=== PATIENT | female | born 1975 | race Hispanic/Latino ===

== ENCOUNTER → 2017-12-13 | Outpatient (CLI) | payer OTHER ==
[~2017-12-13] MED LIST: AMLO5TAB7 PO; IOHEXOL-350 75 ML VIAL IV ONE; MULT-1052 PO; PITA2TAB2 PO
== END | disposition home or self-care (01) ==
LOC: RAH 08:05
PROVIDERS: ATTEND Family Medicine
DX: N83.201 Unspecified ovarian cyst, right side (principal); N83.202 Unspecified ovarian cyst, left side; K76.0 Fatty (change of) liver, not elsewhere classified; K46.9 Unspecified abdominal hernia without obstruction or gangrene; F32.9 Major depressive disorder, single episode, unspecified; I10 Essential (primary) hypertension; E78.5 Hyperlipidemia, unspecified
CPT/HCPCS: 74178; Q9967

== ENCOUNTER 2018-07-28 11:39 | Emergency (ER) | payer OTHER ==
[~2018-07-28 11:39] MED LIST changes: -AMLO5TAB7 PO; +AMLO5TAB9 PO; -IOHEXOL-350 75 ML VIAL IV ONE
[2018-07-28 12:10] LABS: BASOPHILS % (AUTO) 0.7 % (0.0-5.0); EOSINOPHILS % (AUTO) 1.6 % (0.0-8.0); HEMATOCRIT 37.7 % (36-48); LYMPHOCYTES % (AUTO) 20.8 % (21.0-51.0); MEAN CORPUSCULAR HEMOGLOBIN 26.5 pg (27.0-33.0); MEAN CORPUSCULAR HGB CONC 32.6 g/dL (32.0-36.0); MEAN CORPUSCULAR VOLUME 81.2 fL (79-99); MONOCYTES % (AUTO) 4.8 % (3.0-13.0); NEUTROPHILS % (AUTO) 72.1 % (40.0-77.0); PLATELET COUNT (AUTO) 259 K/uL (130-400); RED BLOOD CELL COUNT(AUTO) 4.64 MIL/uL (4.00-5.50); RED CELL DISTRIBUTION WIDTH 13.6 % (11.0-15.5); WHITE BLOOD COUNT (AUTO) 10.2 K/uL (4.8-10.8)
[2018-07-28 12:16] LABS: CREATININE 0.7 mg/dL (0.5-1.5); POTASSIUM 3.6 mmol/L (3.5-5.1)
[2018-07-28 12:21] LABS: INR 0.9 (0.85-1.15); PARTIAL THROMBOPLASTIN TIME 30.5 SEC (26.3-35.5); PROTHROMBIN TIME 9.5 SEC (9.6-11.6)
[2018-07-28 12:26] LABS: ALBUMIN 3.5 g/dL (3.5-5.0); BILIRUBIN,TOTAL 0.3 mg/dL (0.2-1.0); TOTAL PROTEIN, SERUM 7.9 g/dL (6.0-8.3)
[2018-07-28 12:39] LABS: HCG,QUAL RESULT NEGATIVE (NEGATIVE)
[2018-07-28 12:46] LABS: AMPHET/METH SCREEN,URINE NEGATIVE (NEGATIVE); BARBITURATE SCREEN, URINE NEGATIVE (NEGATIVE); BENZODIAZEPINES SCREEN,URINE NEGATIVE (NEGATIVE); CANNABINOID SCREEN,URINE NEGATIVE (NEGATIVE); COCAINE SCREEN,URINE NEGATIVE (NEGATIVE); OPIATE SCREEN,URINE NEGATIVE (NEGATIVE); PHENCYCLIDINE SCREEN,URINE NEGATIVE (NEGATIVE)
[2018-07-28] MEDS ORDERED: ASPIRIN 325 MG TABLET ONE (14:13)
== END 2018-07-28 16:41 | disposition home or self-care (01) ==
LOC: EDH 11:39
DX: R07.89 Other chest pain (principal); I10 Essential (primary) hypertension; R51 Headache; E78.5 Hyperlipidemia, unspecified; Z90.49 Acquired absence of other specified parts of digestive tract
CPT/HCPCS: 36415; 70450; 71045; 80053; 80305; 81025; 82550; 83874; 84484; 85025; 85610; 85730; 93005

== ENCOUNTER 2019-03-16 02:14 | Emergency (ER) | payer OTHER ==
[2019-03-16 02:27] LABS: BASOPHILS % (AUTO) 0.8 % (0.0-5.0); EOSINOPHILS % (AUTO) 2.5 % (0.0-8.0); LYMPHOCYTES % (AUTO) 27.8 % (21.0-51.0); MEAN CORPUSCULAR VOLUME 78.4 fL (79-99); MONOCYTES % (AUTO) 5.4 % (3.0-13.0); NEUTROPHILS % (AUTO) 63.3 % (40.0-77.0); PLATELET COUNT (AUTO) 271 K/uL (130-400); RED BLOOD CELL COUNT(AUTO) 5.23 MIL/uL (4.00-5.50); RED CELL DISTRIBUTION WIDTH 14.7 % (11.0-15.5); WHITE BLOOD COUNT (AUTO) 8.9 K/uL (4.8-10.8)
[2019-03-16 02:28] LABS: APPEARANCE,URINE Clear (CLEAR); BILIRUBIN,URINE Negative (NEGATIVE); COLOR,URINE Yellow (YELLOW); GLUCOSE, URINE (UA) >=1000 mg/dL (NEGATIVE); KETONES,URINE Negative (NEGATIVE); LEUKOCYTE ESTERASE ,URINE Negative (NEGATIVE); NITRATE,URINE Negative (NEGATIVE); OCCULT BLOOD,URINE Negative (NEGATIVE); PH,URINE 6.5 (5.0-8.0); PROTEIN,URINE Negative (NEGATIVE); UROBILINOGEN,URINE 0.2 mg/dL (0.2-1.0)
[2019-03-16 02:35] LABS: CREATININE 0.8 mg/dL (0.5-1.5); POTASSIUM 3.8 mmol/L (3.5-5.1)
[2019-03-16 02:36] LABS: BACTERIA,URINE None Seen /HPF (None Seen); RBC,URINE None Seen /HPF (0-1); WBC,URINE None Seen /HPF (0-1)
[2019-03-16 02:38] LABS: INR 0.88 (0.85-1.15); PROTHROMBIN TIME 9.3 SEC (9.6-11.6)
[2019-03-16 02:40] LABS: ALBUMIN 3.6 g/dL (3.5-5.0); BILIRUBIN,TOTAL 0.2 mg/dL (0.2-1.0); TOTAL PROTEIN, SERUM 8.1 g/dL (6.0-8.3)
[2019-03-16] MEDS ORDERED: ASPIRIN 325 MG TABLET ONE (02:42)
[2019-03-16] MEDS ORDERED: ONDANSETRON HCL 4 MG/2 ML VIAL ONE (02:42)
[2019-03-16] MEDS ORDERED: DIAZEPAM 5 MG TABLET ONE (02:43)
[2019-03-16 02:50] LABS: HCG,QUAL RESULT NEGATIVE (NEGATIVE)
== END 2019-03-16 05:47 | disposition home or self-care (01) ==
LOC: EDH 02:14
DX: R07.89 Other chest pain (principal); R11.0 Nausea; R00.2 Palpitations; I10 Essential (primary) hypertension; E11.9 Type 2 diabetes mellitus without complications; E78.5 Hyperlipidemia, unspecified; Z90.49 Acquired absence of other specified parts of digestive tract
CPT/HCPCS: 36415; 71045; 80053; 81001; 81025; 82550; 83690; 83880; 84484 ×2; 85025; 85610; 85730; 93005 ×2; 96374; 99285; J2405

== ENCOUNTER → 2020-02-08 | Outpatient (CLI) | payer OTHER ==
[~2020-02-08] MED LIST changes: +AMLO-257 PO; -AMLO5TAB9 PO
== END | disposition home or self-care (01) ==
LOC: SLP 21:14
PROVIDERS: ATTEND Family Medicine
DX: G47.33 Obstructive sleep apnea (adult) (pediatric) (principal); G47.30 Sleep apnea, unspecified
CPT/HCPCS: 95810

== ENCOUNTER → 2020-02-29 | Outpatient (CLI) | payer OTHER | END | disposition home or self-care (01) | LOC: SLP 20:14 | PROVIDERS: ATTEND Family Medicine | DX: G47.33 Obstructive sleep apnea (adult) (pediatric) (principal) | CPT/HCPCS: 95811 ==

== ENCOUNTER 2020-03-24 01:02 | Emergency (ER) | payer OTHER ==
[2020-03-24 01:36] LABS: APPEARANCE,URINE Clear (CLEAR); BILIRUBIN,URINE Negative (NEGATIVE); COLOR,URINE Yellow (YELLOW); GLUCOSE, URINE (UA) >=1000 mg/dL (NEGATIVE); KETONES,URINE Trace mg/dL (NEGATIVE); LEUKOCYTE ESTERASE ,URINE Negative (NEGATIVE); NITRATE,URINE Negative (NEGATIVE); OCCULT BLOOD,URINE Negative (NEGATIVE); PROTEIN,URINE Negative (NEGATIVE)
[2020-03-24 01:49] LABS: CREATININE 0.8 mg/dL (0.5-1.5); POTASSIUM 3.3 mmol/L (3.5-5.1)
[2020-03-24 01:50] LABS: BACTERIA,URINE None Seen /HPF (None Seen); CALCIUM OXALATE CRYSTALS,UR Moderate /LPF (None Seen); RBC,URINE None Seen /HPF (0-1); SQUAMOUS EPITHELIAL CELL,UR Few /HPF (0-2); WBC,URINE None Seen /HPF (0-1); YEAST,URINE BUDDING None Seen /HPF (None Seen)
[2020-03-24 01:54] LABS: ALBUMIN 3.4 g/dL (3.5-5.0); BILIRUBIN,TOTAL 0.1 mg/dL (0.2-1.0); TOTAL PROTEIN, SERUM 7.8 g/dL (6.0-8.3)
[2020-03-24] MEDS ORDERED: KCL 20 MEQ ERTAB PO ONE (03:52)
[2020-03-24 04:03] LABS: BASOPHILS % (AUTO) 0.8 % (0.0-5.0); EOSINOPHILS % (AUTO) 2.9 % (0.0-8.0); HEMATOCRIT 41.1 % (36-48); LYMPHOCYTES % (AUTO) 26.4 % (21.0-51.0); MEAN CORPUSCULAR HEMOGLOBIN 24.5 pg (27.0-33.0); MEAN CORPUSCULAR HGB CONC 32.1 g/dL (32.0-36.0); MEAN CORPUSCULAR VOLUME 76.4 fL (79-99); MONOCYTES % (AUTO) 4.7 % (3.0-13.0); NEUTROPHILS % (AUTO) 64.8 % (40.0-77.0); PLATELET COUNT (AUTO) 257 K/uL (130-400); RED BLOOD CELL COUNT(AUTO) 5.38 MIL/uL (4.00-5.50); RED CELL DISTRIBUTION WIDTH 14.6 % (11.0-15.5); WHITE BLOOD COUNT (AUTO) 7.9 K/uL (4.8-10.8)
[2020-03-24 04:09] LABS: BASOPHILS % (AUTO) 0.7 % (0.0-5.0); EOSINOPHILS % (AUTO) 2.2 % (0.0-8.0); LYMPHOCYTES % (AUTO) 22.5 % (21.0-51.0); MEAN CORPUSCULAR HEMOGLOBIN 24.6 pg (27.0-33.0); MEAN CORPUSCULAR HGB CONC 32.1 g/dL (32.0-36.0); MEAN CORPUSCULAR VOLUME 76.8 fL (79-99); MONOCYTES % (AUTO) 3.5 % (3.0-13.0); NEUTROPHILS % (AUTO) 70.7 % (40.0-77.0); PLATELET COUNT (AUTO) 246 K/uL (130-400); RED BLOOD CELL COUNT(AUTO) 5.08 MIL/uL (4.00-5.50); RED CELL DISTRIBUTION WIDTH 14.6 % (11.0-15.5)
== END 2020-03-24 04:49 | disposition home or self-care (01) ==
LOC: EDH 01:02
DX: E87.6 Hypokalemia (principal); F41.1 Generalized anxiety disorder; E11.9 Type 2 diabetes mellitus without complications; E78.5 Hyperlipidemia, unspecified; I10 Essential (primary) hypertension; Z90.49 Acquired absence of other specified parts of digestive tract
CPT/HCPCS: 36415; 71045; 80053; 81001; 84484; 85025; 93005

== ENCOUNTER → 2021-11-13 | Outpatient (CLI) | payer OTHER | END | disposition home or self-care (01) | LOC: SLP 11-09 20:30 | PROVIDERS: ATTEND Family Medicine | DX: G47.33 Obstructive sleep apnea (adult) (pediatric) (principal) | CPT/HCPCS: 95811 ==

== ENCOUNTER 2022-02-19 16:00 | Observation (INO) | payer OTHER ==
[~2022-02-19] VITALS: Ht 154.9 cm; Wt 70.7 kg
[2022-02-19] MEDS ORDERED: ONDANSETRON 4MG INJ IVP ONE (17:00)
[2022-02-19] MEDS ORDERED: FAMOTIDINE 20MG TAB PO ONE (17:00)
[2022-02-19 17:12] LABS: BASOPHILS % (AUTO) 0.5 % (0.0-5.0); EOSINOPHILS % (AUTO) 0.4 % (0.0-8.0); HEMATOCRIT 44.6 % (36-48); LYMPHOCYTES % (AUTO) 6.3 % (21.0-51.0); MEAN CORPUSCULAR HEMOGLOBIN 25.7 pg (27.0-33.0); MEAN CORPUSCULAR HGB CONC 32.7 g/dL (32.0-36.0); MEAN CORPUSCULAR VOLUME 78.7 fL (79-99); MONOCYTES % (AUTO) 4.8 % (3.0-13.0); NEUTROPHILS % (AUTO) 87.6 % (40.0-77.0); PLATELET COUNT (AUTO) 236 K/uL (130-400); RED BLOOD CELL COUNT(AUTO) 5.67 MIL/uL (4.00-5.50); RED CELL DISTRIBUTION WIDTH 15.3 % (11.0-15.5); WHITE BLOOD COUNT (AUTO) 17.2 K/uL (4.8-10.8)
[2022-02-19 17:35] LABS: CREATININE 0.7 mg/dL (0.5-1.5); POTASSIUM 3.6 mmol/L (3.5-5.1)
[2022-02-19 17:39] LABS: ALBUMIN 3.7 g/dL (3.5-5.0); TOTAL PROTEIN, SERUM 7.6 g/dL (6.0-8.3)
[2022-02-19 19:25] LABS: APPEARANCE,URINE CLEAR (CLEAR); BILIRUBIN,URINE NEGATIVE (NEGATIVE); COLOR,URINE YELLOW (YELLOW); GLUCOSE, URINE (UA) >=1000 mg/dL (NEGATIVE); KETONES,URINE 15 mg/dL (NEGATIVE); LEUKOCYTE ESTERASE ,URINE NEGATIVE Leu/uL (NEGATIVE); NITRATE,URINE NEGATIVE (NEGATIVE); OCCULT BLOOD,URINE NEGATIVE (NEGATIVE); PH,URINE 5.5 (5.0-8.0); PROTEIN,URINE NEGATIVE (NEGATIVE); UROBILINOGEN,URINE 0.2 mg/dL (0.2-1.0)
[2022-02-19 19:41] LABS: RBC,URINE None Seen /HPF (0-1)
[2022-02-19 19:42] LABS: BACTERIA,URINE Rare /HPF (None Seen); SQUAMOUS EPITHELIAL CELL,UR 0-2 /HPF (0-2); WBC,URINE 0-1 /HPF (0-1)
[2022-02-19] MEDS ORDERED: HYDROCODONE/ACETAMINOPHEN 5/325 MG TAB PO PRN ×2 (20:00)
[2022-02-19 20:30] LABS: HEMOGLOBIN A1C 5.8 % (4.0-6.0)
[2022-02-19] MEDS: INSULIN HUMULIN R 100 UNIT/ML 3ML SQ SCH (21:00)
[2022-02-19] MEDS: PANTOPRAZOLE 40 MG/VIAL IVP SCH (21:21)
[2022-02-19] MEDS: CEFTRIAXONE 1G VIAL IVP SCH (21:21)
[2022-02-20] VITALS (7 sets, daily range): BP systolic 113–128; BP diastolic 68–78
[2022-02-20] MEDS ORDERED: AMLO-258 PO (02:45)
[2022-02-20] MEDS ORDERED: METF750T46 PO (02:45)
[2022-02-20] MEDS ORDERED: ROSU5TAB12 PO (02:45)
[2022-02-20] MEDS ORDERED: LOSA100T58 PO (02:45)
[2022-02-20] MEDS: INSULIN HUMULIN R 100 UNIT/ML 3ML SQ SCH ×4 (07:30→21:00)
[2022-02-20 07:34] LABS: ALBUMIN 3.3 g/dL (3.5-5.0); CREATININE 0.6 mg/dL (0.5-1.5); MAGNESIUM 1.9 mg/dL (1.80-2.40); POTASSIUM 3.5 mmol/L (3.5-5.1); TOTAL PROTEIN, SERUM 6.9 g/dL (6.0-8.3)
[2022-02-20 09:23] LABS: ERYTHROCYTE SEDIMENTATION RATE 10 MM/HR (0-20)
[2022-02-20 09:25] LABS: BASOPHILS % (AUTO) 0.7 % (0.0-5.0); EOSINOPHILS % (AUTO) 3.2 % (0.0-8.0); HEMATOCRIT 37.6 % (36-48); LYMPHOCYTES % (AUTO) 37.1 % (21.0-51.0); MEAN CORPUSCULAR HEMOGLOBIN 25.9 pg (27.0-33.0); MEAN CORPUSCULAR HGB CONC 32.7 g/dL (32.0-36.0); MEAN CORPUSCULAR VOLUME 79.2 fL (79-99); MONOCYTES % (AUTO) 5.7 % (3.0-13.0); NEUTROPHILS % (AUTO) 53.1 % (40.0-77.0); PLATELET COUNT (AUTO) 242 K/uL (130-400); RED BLOOD CELL COUNT(AUTO) 4.75 MIL/uL (4.00-5.50); RED CELL DISTRIBUTION WIDTH 15.3 % (11.0-15.5)
[2022-02-20] MEDS ORDERED: HYDRALAZINE 20MG/ML VIAL IV PRN (11:00)
[2022-02-20] MEDS ORDERED: 0.9%NACL 1000ML 500 ML IV ONE (11:00)
[2022-02-20 11:04] LABS: HEMOGLOBIN A1C 5.7 % (4.0-6.0)
[2022-02-20] MEDS ORDERED: IOHEXOL 350 MG/ML 100ML INFUS..BTL IV ONE (11:34)
[2022-02-20] MEDS: PANTOPRAZOLE 40 MG/VIAL IVP SCH ×2 (12:39→21:22)
[2022-02-20] MEDS: ASPIRIN 81 MG EC TAB PO SCH (12:39)
[2022-02-20] MEDS: CEFTRIAXONE 1G VIAL IVP SCH ×2 (12:39→21:22)
[2022-02-20 13:33] LABS: APPEARANCE,URINE CLEAR (CLEAR); BILIRUBIN,URINE NEGATIVE (NEGATIVE); COLOR,URINE LIGHT-YELLOW (YELLOW); GLUCOSE, URINE (UA) >=1000 mg/dL (NEGATIVE); KETONES,URINE NEGATIVE (NEGATIVE); LEUKOCYTE ESTERASE ,URINE NEGATIVE Leu/uL (NEGATIVE); NITRATE,URINE NEGATIVE (NEGATIVE); OCCULT BLOOD,URINE NEGATIVE (NEGATIVE); PH,URINE 6.5 (5.0-8.0); PROTEIN,URINE NEGATIVE (NEGATIVE); UROBILINOGEN,URINE 0.2 mg/dL (0.2-1.0)
[2022-02-20 14:11] LABS: BACTERIA,URINE RARE /HPF (None Seen); SQUAMOUS EPITHELIAL CELL,UR FEW /HPF (0-2)
[2022-02-20] MEDS ORDERED: ATORVASTATIN 40 MG TABLET PO SCH (21:00)
[2022-02-21 04:10] VITALS: BP 116/70
[2022-02-21 04:13] LABS: BASOPHILS % (AUTO) 0.6 % (0.0-5.0); EOSINOPHILS % (AUTO) 3.1 % (0.0-8.0); HEMATOCRIT 39.5 % (36-48); LYMPHOCYTES % (AUTO) 28.7 % (21.0-51.0); MEAN CORPUSCULAR HEMOGLOBIN 25.5 pg (27.0-33.0); MEAN CORPUSCULAR HGB CONC 31.6 g/dL (32.0-36.0); MEAN CORPUSCULAR VOLUME 80.6 fL (79-99); MONOCYTES % (AUTO) 5.6 % (3.0-13.0); NEUTROPHILS % (AUTO) 61.9 % (40.0-77.0); PLATELET COUNT (AUTO) 204 K/uL (130-400); RED CELL DISTRIBUTION WIDTH 15.6 % (11.0-15.5); WHITE BLOOD COUNT (AUTO) 7.1 K/uL (4.8-10.8)
[2022-02-21 04:30] LABS: CREATININE 0.7 mg/dL (0.5-1.5); MAGNESIUM 1.9 mg/dL (1.80-2.40); POTASSIUM 3.7 mmol/L (3.5-5.1)
[2022-02-21] MEDS: INSULIN HUMULIN R 100 UNIT/ML 3ML SQ SCH (07:30)
[2022-02-21 08:00] VITALS: BP 117/76
[2022-02-21] MEDS: ASPIRIN 81 MG EC TAB PO SCH (09:06)
[2022-02-21] MEDS: PANTOPRAZOLE 40 MG/VIAL IVP SCH (09:06)
[2022-02-21] MEDS: CEFTRIAXONE 1G VIAL IVP SCH (09:06)
[2022-02-21] MEDS ORDERED: LOSARTAN 25 MG TABLET PO SCH (10:00)
[2022-02-21] MEDS ORDERED: LOSA25TA41 PO (11:32)
[2022-02-21] MEDS ORDERED: AEC81 PO (11:33)
[2022-02-21] MEDS ORDERED: CEPH500B PO (11:38)
== END 2022-02-21 14:45 | disposition home or self-care (01) ==
LOC: EDH 16:00 → INTOOBSV 19:39 → EDHIP 19:39 → 3DH 02-20 00:45
PROVIDERS: ADMIT Hospitalist; ATTEND Hospitalist
DX: R10.9 Unspecified abdominal pain (principal); R11.2 Nausea with vomiting, unspecified; R20.0 Anesthesia of skin; R42 Dizziness and giddiness; R51.9 Headache, unspecified; I10 Essential (primary) hypertension; E11.9 Type 2 diabetes mellitus without complications; D72.829 Elevated white blood cell count, unspecified; E78.5 Hyperlipidemia, unspecified; G51.0 Bell's palsy; I63.9 Cerebral infarction, unspecified; R29.700 NIHSS score 0; Z79.84 Long term (current) use of oral hypoglycemic drugs; Z79.899 Other long term (current) drug therapy; Z98.890 Other specified postprocedural states; Z79.82 Long term (current) use of aspirin
CPT/HCPCS: 96374; 96375; 99285; 83036 ×2; 82550; 84484; 80053 ×2; 83690; 85025 ×3; 87040 ×2; 82948 ×7; 81001 ×2; 36415 ×3; 71045; 70450; 74176; 93005; 96376 ×2; 84443; 83735 ×2; 85651; 87088; 81025; 70496; 70498; 70551; 92522; 92610; 80061; 80048; 93306; J0696 ×4; J2405; C9113 ×4; J7030; Q9967; G0378 ×2

== ENCOUNTER 2022-05-28 04:15 | Inpatient (IN) | payer OTHER ==
[~2022-05-28] VITALS: Ht 152.4 cm; Wt 68.3 kg
[~2022-05-28 04:15] MED LIST changes: +AEC81 PO; -AMLO-257 PO; +CEPH500B PO; +LOSA25TA41 PO; -PITA2TAB2 PO; +ROSU5TAB12 PO
[2022-05-28] MEDS ORDERED: ONDANSETRON 4MG INJ ONE (04:27)
[2022-05-28] MEDS ORDERED: 0.9%NACL 1000ML 1,000 ML IV ONE (04:30)
[2022-05-28] MEDS ORDERED: ONDANSETRON 4MG INJ IVP ONE (04:30)
[2022-05-28] MEDS ORDERED: MORPHINE 4 MG SYG ONE (04:34)
[2022-05-28 04:51] LABS: BASOPHILS % (AUTO) 0.4 % (0.0-5.0); EOSINOPHILS % (AUTO) 0.1 % (0.0-8.0); HEMATOCRIT 43.3 % (36-48); LYMPHOCYTES % (AUTO) 10.4 % (21.0-51.0); MEAN CORPUSCULAR HEMOGLOBIN 26.2 pg (27.0-33.0); MEAN CORPUSCULAR HGB CONC 33.3 g/dL (32.0-36.0); MEAN CORPUSCULAR VOLUME 78.7 fL (79-99); MONOCYTES % (AUTO) 4.7 % (3.0-13.0); NEUTROPHILS % (AUTO) 83.7 % (40.0-77.0); PLATELET COUNT (AUTO) 228 K/uL (130-400); RED CELL DISTRIBUTION WIDTH 15.2 % (11.0-15.5); WHITE BLOOD COUNT (AUTO) 25.1 K/uL (4.8-10.8)
[2022-05-28 04:59] LABS: CREATININE 0.8 mg/dL (0.5-1.5); POTASSIUM 3.4 mmol/L (3.5-5.1)
[2022-05-28] MEDS ORDERED: MORPHINE 4 MG SYG IVP ONE (05:00)
[2022-05-28 05:02] LABS: APPEARANCE,URINE CLOUDY (CLEAR); BILIRUBIN,URINE NEGATIVE (NEGATIVE); COLOR,URINE YELLOW (YELLOW); GLUCOSE, URINE (UA) >=1000 mg/dL (NEGATIVE); KETONES,URINE 40 mg/dL (NEGATIVE); LEUKOCYTE ESTERASE ,URINE 250 Leu/uL (NEGATIVE); NITRATE,URINE NEGATIVE (NEGATIVE); PH,URINE 5.5 (5.0-8.0); PROTEIN,URINE 10 mg/dL (NEGATIVE); UROBILINOGEN,URINE 0.2 mg/dL (0.2-1.0)
[2022-05-28 05:04] LABS: BACTERIA,URINE RARE /HPF (None Seen); MUCUS,URINE RARE LPF (None Seen); SQUAMOUS EPITHELIAL CELL,UR FEW /HPF (0-2); WBC,URINE 51-100 /HPF (0-1)
[2022-05-28 05:05] LABS: ALBUMIN 3.4 g/dL (3.5-5.0); TOTAL PROTEIN, SERUM 7.8 g/dL (6.0-8.3)
[2022-05-28] MEDS ORDERED: CEFTRIAXONE 1G VIAL ONE (05:40)
[2022-05-28] MEDS ORDERED: CEFTRIAXONE 1G VIAL IVP ONE (06:00)
[2022-05-28] MEDS ORDERED: ZOSYN 3.375GM +NS 50ML IVPB STA (11:10)
[2022-05-28] MEDS ORDERED: ZOSYN 3.375GM+NS 50ML 50 ML IVPB ONE (11:30)
[2022-05-28] MEDS ORDERED: ZOSYN 3.375GM+NS 50ML 50 ML IVPB SCH ×2 (13:00→21:00)
[2022-05-28] MEDS ORDERED: MORPHINE 2 MG SYG ONE (13:12)
[2022-05-28] MEDS ORDERED: LACTATED RINGERS 1000ML 1,000 ML IV ONE (13:12)
[2022-05-28] MEDS: MORPHINE 2 MG SYG IVP PRN ×2 (13:14→18:17)
[2022-05-28] MEDS: LACTATED RINGERS 1000ML 1,000 ML IV SCH ×2 (13:14→22:30)
[2022-05-28 13:20] LABS: HEMOGLOBIN A1C 6.2 % (4.0-6.0); PROTHROMBIN TIME 10.9 SEC (9.6-11.6)
[2022-05-28 13:21] LABS: PARTIAL THROMBOPLASTIN TIME 35.3 SEC (26.3-35.5)
[2022-05-28 13:47] LABS: AMPHET/METH SCREEN,URINE NEGATIVE (NEGATIVE); BARBITURATE SCREEN, URINE NEGATIVE (NEGATIVE); BENZODIAZEPINES SCREEN,URINE NEGATIVE (NEGATIVE); CANNABINOID SCREEN,URINE NEGATIVE (NEGATIVE); COCAINE SCREEN,URINE NEGATIVE (NEGATIVE); OPIATE SCREEN,URINE NEGATIVE (NEGATIVE); PHENCYCLIDINE SCREEN,URINE NEGATIVE (NEGATIVE)
[2022-05-28 14:30] VITALS: BP 126/72
[2022-05-28] MEDS ORDERED: ONDANSETRON 4MG INJ IVP PRN (15:00)
[2022-05-28] MEDS ORDERED: SIMETHICONE 80 MG TAB.CHEW PO SCH (18:30)
[2022-05-28] MEDS: DOXYCYCLINE HYCLATE 100 MG TABLET PO SCH (19:42)
[2022-05-28] MEDS: ACETAMINOPHEN 325 MG TAB PO PRN (19:43)
[2022-05-28 20:00] VITALS: BP 131/81
[2022-05-28] MEDS ORDERED: 0.9%NACL 50ML IV SCH (20:00)
[2022-05-28] MEDS ORDERED: ZOSYN 3.375GM +NS 50ML IVPB SCH (20:00)
[2022-05-28] MEDS ORDERED: VANCOMYCIN PROTOCOL PER PHARMACY IV SCH (20:00)
[2022-05-28] MEDS ORDERED: VANCOMYCIN 1G/250ML KIT 250 ML IV SCH (20:00)
[2022-05-28] MEDS: INSULIN HUMULIN R 100 UNIT/ML 3ML SQ SCH (21:00)
[2022-05-28] MEDS: MEROPENEM 1 GM VIAL IVP SCH (21:10)
[2022-05-28] MEDS: KETOROLAC 15MG/ML VIAL (15MG/ML) IV PRN (21:10)
[2022-05-29] VITALS: BP 109/71
[2022-05-29] MEDS: ACETAMINOPHEN 325 MG TAB PO PRN (02:07)
[2022-05-29 04:00] VITALS: BP 124/73
[2022-05-29] MEDS: MEROPENEM 1 GM VIAL IVP SCH ×3 (04:25→20:33)
[2022-05-29 05:07] LABS: BASOPHILS % (AUTO) 0.2 % (0.0-5.0); EOSINOPHILS % (AUTO) 0.1 % (0.0-8.0); HEMATOCRIT 38.1 % (36-48); LYMPHOCYTES % (AUTO) 6.3 % (21.0-51.0); MEAN CORPUSCULAR HEMOGLOBIN 25.7 pg (27.0-33.0); MEAN CORPUSCULAR HGB CONC 31.8 g/dL (32.0-36.0); MEAN CORPUSCULAR VOLUME 81.1 fL (79-99); MONOCYTES % (AUTO) 3.7 % (3.0-13.0); PLATELET COUNT (AUTO) 181 K/uL (130-400); RED CELL DISTRIBUTION WIDTH 15.7 % (11.0-15.5); WHITE BLOOD COUNT (AUTO) 16.3 K/uL (4.8-10.8)
[2022-05-29 05:33] LABS: ALBUMIN 2.6 g/dL (3.5-5.0); CREATININE 0.8 mg/dL (0.5-1.5); POTASSIUM 3.4 mmol/L (3.5-5.1); TOTAL PROTEIN, SERUM 6.7 g/dL (6.0-8.3)
[2022-05-29] MEDS: INSULIN HUMULIN R 100 UNIT/ML 3ML SQ SCH ×4 (05:58→20:44)
[2022-05-29 06:29] LABS: CRP QUANTITATIVE 446.4 mg/L (0.00-9.0)
[2022-05-29 08:11] VITALS: BP 111/72
[2022-05-29] MEDS: DOXYCYCLINE HYCLATE 100 MG TABLET PO SCH ×2 (08:49→20:33)
[2022-05-29] MEDS: KETOROLAC 15MG/ML VIAL (15MG/ML) IV PRN ×3 (08:50→21:28)
[2022-05-29] MEDS: VANCOMYCIN 750MG VIAL IVPB SCH ×2 (08:50→21:28)
[2022-05-29] MEDS ORDERED: 0.9% NACL 250ML 250 ML IV SCH (09:00)
[2022-05-29] MEDS: PANTOPRAZOLE 40 MG/VIAL IVP SCH (11:14)
[2022-05-29 12:11] VITALS: BP 137/77
[2022-05-29 16:46] VITALS: BP 126/74
[2022-05-29] MEDS: LACTATED RINGERS 1000ML 1,000 ML IV SCH (17:55)
[2022-05-29] MEDS: ACETAMINOPHEN 500 MG TABLET PO PRN (18:32)
[2022-05-29 20:00] VITALS: BP 126/76
[2022-05-29] MEDS ORDERED: IPRATROPIUM/ALBUTEROL SULFATE 3 ML SOLUTION IH PRN (21:00)
[2022-05-29] MEDS ORDERED: LACTATED RINGERS 1000ML 1,000 ML IV SCH (21:00)
[2022-05-29] MEDS: BUDESONIDE 0.5 MG/2 ML INH IH SCH (21:29)
[2022-05-30] VITALS (31 sets, daily range): BP systolic 114–156; BP diastolic 61–93
[2022-05-30 05:15] LABS: BASOPHILS % (AUTO) 0.3 % (0.0-5.0); EOSINOPHILS % (AUTO) 0.2 % (0.0-8.0); HEMATOCRIT 35.4 % (36-48); MEAN CORPUSCULAR HGB CONC 32.5 g/dL (32.0-36.0); MEAN CORPUSCULAR VOLUME 79.9 fL (79-99); MONOCYTES % (AUTO) 3.7 % (3.0-13.0); NEUTROPHILS % (AUTO) 89.5 % (40.0-77.0); PLATELET COUNT (AUTO) 186 K/uL (130-400); RED BLOOD CELL COUNT(AUTO) 4.43 MIL/uL (4.00-5.50); RED CELL DISTRIBUTION WIDTH 15.2 % (11.0-15.5); WHITE BLOOD COUNT (AUTO) 15.8 K/uL (4.8-10.8)
[2022-05-30] MEDS: MEROPENEM 1 GM VIAL IVP SCH ×3 (05:15→20:46)
[2022-05-30 05:27] LABS: ALBUMIN 2.2 g/dL (3.5-5.0); CREATININE 0.7 mg/dL (0.5-1.5); POTASSIUM 3.2 mmol/L (3.5-5.1); TOTAL PROTEIN, SERUM 6.5 g/dL (6.0-8.3)
[2022-05-30] MEDS: KETOROLAC 15MG/ML VIAL (15MG/ML) IV PRN ×3 (05:30→21:06)
[2022-05-30 05:44] LABS: CRP QUANTITATIVE 479.2 mg/L (0.00-9.0)
[2022-05-30 05:50] LABS: B-TYPE NATRIURETIC PEPTIDE 90 pg/mL (0-100)
[2022-05-30] MEDS ORDERED: BUDESONIDE 0.5 MG/2 ML INH IH ONE (06:18)
[2022-05-30] MEDS: INSULIN HUMULIN R 100 UNIT/ML 3ML SQ SCH ×4 (06:22→20:46)
[2022-05-30] MEDS: BUDESONIDE 0.5 MG/2 ML INH IH SCH ×2 (06:36→18:56)
[2022-05-30] MEDS ORDERED: PROPOFOL 10 MG/ML 20ML VIAL IV ONE (06:47)
[2022-05-30] MEDS ORDERED: FENTANYL CITRATE PF 50 MCG/1 ML 2ML VIAL ONE ×2 (06:47→09:26)
[2022-05-30] MEDS ORDERED: MIDAZOLAM HCL 1 MG/ML 2ML VIAL ONE (06:47)
[2022-05-30] MEDS: DOXYCYCLINE HYCLATE 100 MG TABLET PO SCH ×2 (07:50→20:46)
[2022-05-30] MEDS: PANTOPRAZOLE 40 MG/VIAL IVP SCH (08:11)
[2022-05-30] MEDS ORDERED: ROCURONIUM 10MG/1ML SYR 10 MG/ML ML ONE (08:38)
[2022-05-30] MEDS ORDERED: ONDANSETRON 4MG INJ ONE (08:40)
[2022-05-30] MEDS ORDERED: NEOSTIGMINE 5MG/5ML SYR IV ONE (09:26)
[2022-05-30] MEDS ORDERED: GLYCOPYRROLATE 1 MG/5 ML SYRINGE ONE (09:26)
[2022-05-30] MEDS: VANCOMYCIN 750MG VIAL IVPB SCH ×2 (11:13→22:03)
[2022-05-30] MEDS ORDERED: VANCOMYCIN 500MG+NS 100ML 100 ML IV SCH (15:00)
[2022-05-30] MEDS: ACETAMINOPHEN 500 MG TABLET PO PRN (15:03)
[2022-05-30] MEDS: DEXTROSE 5%-LACTATED RINGERS 1,000 ML IV SCH ×2 (15:03→19:30)
[2022-05-30] MEDS ORDERED: LABETALOL 20MG VIAL IV PRN (16:00)
[2022-05-30] MEDS: (Rosuvastatin Calcium 5 MG) PO SCH (20:46)
[2022-05-31] MEDS: DEXTROSE 5%-LACTATED RINGERS 1,000 ML IV SCH ×3 (03:30→19:30)
[2022-05-31 04:38] VITALS: BP 140/75
[2022-05-31 05:15] LABS: BASOPHILS % (AUTO) 0.2 % (0.0-5.0); EOSINOPHILS % (AUTO) 0.3 % (0.0-8.0); HEMATOCRIT 32.3 % (36-48); LYMPHOCYTES % (AUTO) 5.6 % (21.0-51.0); MEAN CORPUSCULAR HEMOGLOBIN 25.8 pg (27.0-33.0); MEAN CORPUSCULAR HGB CONC 33.1 g/dL (32.0-36.0); MEAN CORPUSCULAR VOLUME 77.8 fL (79-99); MONOCYTES % (AUTO) 3.8 % (3.0-13.0); NEUTROPHILS % (AUTO) 89.4 % (40.0-77.0); PLATELET COUNT (AUTO) 201 K/uL (130-400); RED BLOOD CELL COUNT(AUTO) 4.15 MIL/uL (4.00-5.50); RED CELL DISTRIBUTION WIDTH 14.9 % (11.0-15.5); WHITE BLOOD COUNT (AUTO) 14.6 K/uL (4.8-10.8)
[2022-05-31 05:35] LABS: CREATININE 0.6 mg/dL (0.5-1.5); MAGNESIUM 1.5 mg/dL (1.80-2.40); TOTAL PROTEIN, SERUM 6.1 g/dL (6.0-8.3)
[2022-05-31 05:47] LABS: POTASSIUM 2.6 mmol/L (3.5-5.1)
[2022-05-31] MEDS: MEROPENEM 1 GM VIAL IVP SCH ×3 (05:59→20:13)
[2022-05-31] MEDS: INSULIN HUMULIN R 100 UNIT/ML 3ML SQ SCH ×4 (05:59→20:18)
[2022-05-31] MEDS: ACETAMINOPHEN 325 MG TAB PO PRN ×2 (06:03→20:12)
[2022-05-31] MEDS: BUDESONIDE 0.5 MG/2 ML INH IH SCH ×2 (06:40→18:38)
[2022-05-31 07:57] VITALS: BP 140/77
[2022-05-31] MEDS ORDERED: POTASSIUM CHLORIDE 10% ELIXIR 20 MEQ/15 ML UDCUP PO PRN (08:30)
[2022-05-31] MEDS ORDERED: MAGNESIUM 4GM PREMIX 100ML 100 ML IV PRN (08:30)
[2022-05-31] MEDS: LOSARTAN 25 MG TABLET PO SCH (09:07)
[2022-05-31] MEDS: DOXYCYCLINE HYCLATE 100 MG TABLET PO SCH ×2 (09:07→20:12)
[2022-05-31] MEDS: ASPIRIN 81 MG EC TAB PO SCH (09:07)
[2022-05-31] MEDS: PANTOPRAZOLE 40 MG/VIAL IVP SCH (09:07)
[2022-05-31] MEDS: VANCOMYCIN 750MG VIAL IVPB SCH ×2 (09:08→21:06)
[2022-05-31] MEDS: LIDOCAINE HCL-MPF 1% 2ML VIAL IV PRN ×2 (10:57→14:19)
[2022-05-31] MEDS: KCL 20 MEQ ERTAB PO PRN ×6 (10:57→23:50)
[2022-05-31] MEDS: POTASSIUM CHLORIDE 20MEQ/100ML 100 ML IV PRN ×2 (10:57→14:19)
[2022-05-31 12:00] VITALS: BP 141/83
[2022-05-31] MEDS: ACETAMINOPHEN 500 MG TABLET PO PRN (12:00)
[2022-05-31] MEDS ORDERED: LOPERAMIDE 1 MG/7.5 ML UDCUP PO SCH (12:00)
[2022-05-31 12:53] LABS: THYROID STIMULATING HORMONE 1.5 uIU/mL (0.36-3.74)
[2022-05-31] MEDS: LOPERAMIDE 1 MG/7.5 ML UDCUP PO SCH ×2 (14:18→20:12)
[2022-05-31] MEDS ORDERED: AMLO-257 PO (15:41)
[2022-05-31 16:00] VITALS: BP 141/85
[2022-05-31 19:53] VITALS: BP 146/86
[2022-05-31] MEDS: (Rosuvastatin Calcium 5 MG) PO SCH (21:00)
[2022-05-31 23:31] VITALS: BP 127/82
[2022-06-01] MEDS: ACETAMINOPHEN 500 MG TABLET PO PRN ×2 (00:21→16:55)
[2022-06-01] MEDS: KCL 20 MEQ ERTAB PO PRN (03:27)
[2022-06-01] MEDS: DEXTROSE 5%-LACTATED RINGERS 1,000 ML IV SCH ×3 (03:30→20:23)
[2022-06-01 04:37] VITALS: BP 131/87
[2022-06-01 04:52] LABS: BASOPHILS % (AUTO) 0.5 % (0.0-5.0); HEMATOCRIT 32.7 % (36-48); LYMPHOCYTES % (AUTO) 8.4 % (21.0-51.0); MEAN CORPUSCULAR HEMOGLOBIN 25.8 pg (27.0-33.0); MEAN CORPUSCULAR HGB CONC 32.7 g/dL (32.0-36.0); MEAN CORPUSCULAR VOLUME 78.8 fL (79-99); MONOCYTES % (AUTO) 5.6 % (3.0-13.0); NEUTROPHILS % (AUTO) 83.7 % (40.0-77.0); PLATELET COUNT (AUTO) 206 K/uL (130-400); RED BLOOD CELL COUNT(AUTO) 4.15 MIL/uL (4.00-5.50); RED CELL DISTRIBUTION WIDTH 15.1 % (11.0-15.5); WHITE BLOOD COUNT (AUTO) 11.7 K/uL (4.8-10.8)
[2022-06-01 05:10] LABS: ALBUMIN 1.9 g/dL (3.5-5.0); CREATININE 0.6 mg/dL (0.5-1.5); MAGNESIUM 1.9 mg/dL (1.80-2.40); POTASSIUM 3.6 mmol/L (3.5-5.1); TOTAL PROTEIN, SERUM 5.9 g/dL (6.0-8.3)
[2022-06-01] MEDS: MEROPENEM 1 GM VIAL IVP SCH ×3 (05:26→22:00)
[2022-06-01] MEDS: ACETAMINOPHEN 325 MG TAB PO PRN (05:34)
[2022-06-01] MEDS: BUDESONIDE 0.5 MG/2 ML INH IH SCH ×2 (06:42→19:37)
[2022-06-01] MEDS: INSULIN HUMULIN R 100 UNIT/ML 3ML SQ SCH ×4 (07:16→20:21)
[2022-06-01 08:00] VITALS: BP 133/88
[2022-06-01] MEDS: LOPERAMIDE 1 MG/7.5 ML UDCUP PO SCH (09:00)
[2022-06-01] MEDS: VANCOMYCIN 750MG VIAL IVPB SCH ×2 (09:00→22:00)
[2022-06-01] MEDS: DOXYCYCLINE HYCLATE 100 MG TABLET PO SCH ×2 (09:05→22:01)
[2022-06-01] MEDS: ASPIRIN 81 MG EC TAB PO SCH (09:05)
[2022-06-01] MEDS: LOSARTAN 25 MG TABLET PO SCH (09:06)
[2022-06-01] MEDS: AMLODIPINE 5 MG TAB PO SCH (09:06)
[2022-06-01] MEDS ORDERED: VANCOMYCIN 1.75 GM/250 ML BAG 250 ML IV SCH (11:00)
[2022-06-01] MEDS: PANTOPRAZOLE 40 MG/VIAL IVP SCH (11:42)
[2022-06-01 11:56] VITALS: BP 138/80
[2022-06-01] MEDS: DICYCLOMINE HCL 20 MG TAB PO SCH (14:54)
[2022-06-01] MEDS: SIMETHICONE 80 MG TAB.CHEW PO SCH (14:54)
[2022-06-01 16:00] VITALS: BP 135/85
[2022-06-01] MEDS ORDERED: IOHEXOL 350 MG/ML 100ML INFUS..BTL IV ONE (17:01)
[2022-06-01 20:20] VITALS: BP 118/77
[2022-06-01] MEDS: (Rosuvastatin Calcium 5 MG) PO SCH (21:00)
[2022-06-02 00:25] VITALS: BP 139/84
[2022-06-02] MEDS: KETOROLAC 15MG/ML VIAL (15MG/ML) IV PRN ×2 (00:28→10:52)
[2022-06-02] MEDS: DEXTROSE 5%-LACTATED RINGERS 1,000 ML IV SCH ×3 (03:30→20:12)
[2022-06-02 03:42] VITALS: BP 145/82
[2022-06-02 05:13] LABS: BASOPHILS % (AUTO) 0.4 % (0.0-5.0); EOSINOPHILS % (AUTO) 1.3 % (0.0-8.0); HEMATOCRIT 33.9 % (36-48); LYMPHOCYTES % (AUTO) 11.4 % (21.0-51.0); MEAN CORPUSCULAR HEMOGLOBIN 25.7 pg (27.0-33.0); MEAN CORPUSCULAR HGB CONC 32.4 g/dL (32.0-36.0); MEAN CORPUSCULAR VOLUME 79.2 fL (79-99); MONOCYTES % (AUTO) 5.9 % (3.0-13.0); NEUTROPHILS % (AUTO) 79.8 % (40.0-77.0); PLATELET COUNT (AUTO) 223 K/uL (130-400); RED BLOOD CELL COUNT(AUTO) 4.28 MIL/uL (4.00-5.50); RED CELL DISTRIBUTION WIDTH 14.8 % (11.0-15.5); WHITE BLOOD COUNT (AUTO) 10.3 K/uL (4.8-10.8)
[2022-06-02 05:23] LABS: CREATININE 0.6 mg/dL (0.5-1.5); MAGNESIUM 1.7 mg/dL (1.80-2.40); POTASSIUM 3.3 mmol/L (3.5-5.1); TOTAL PROTEIN, SERUM 5.9 g/dL (6.0-8.3)
[2022-06-02] MEDS: MEROPENEM 1 GM VIAL IVP SCH ×3 (05:23→20:12)
[2022-06-02] MEDS: KCL 20 MEQ ERTAB PO PRN ×2 (05:35→14:41)
[2022-06-02] MEDS: BUDESONIDE 0.5 MG/2 ML INH IH SCH ×2 (06:26→19:56)
[2022-06-02] MEDS: INSULIN HUMULIN R 100 UNIT/ML 3ML SQ SCH ×4 (06:39→21:00)
[2022-06-02] MEDS: VANCOMYCIN 750MG VIAL IVPB SCH ×3 (06:39→22:22)
[2022-06-02 08:00] VITALS: BP 122/81
[2022-06-02] MEDS: AMLODIPINE 5 MG TAB PO SCH (09:11)
[2022-06-02] MEDS: ASPIRIN 81 MG EC TAB PO SCH (09:11)
[2022-06-02] MEDS: LOSARTAN 25 MG TABLET PO SCH (09:11)
[2022-06-02] MEDS: DOXYCYCLINE HYCLATE 100 MG TABLET PO SCH ×2 (09:11→20:11)
[2022-06-02] MEDS: PANTOPRAZOLE 40 MG/VIAL IVP SCH (10:03)
[2022-06-02] MEDS: DICYCLOMINE HCL 20 MG TAB PO SCH (14:00)
[2022-06-02] MEDS: SIMETHICONE 80 MG TAB.CHEW PO SCH (14:00)
[2022-06-02] MEDS ORDERED: BISACODYL 10 MG SUPP.RECT RC ONE ×2 (14:47→16:30)
[2022-06-02 16:00] VITALS: BP 153/74
[2022-06-02] MEDS: MAGNESIUM 2GM PREMIX 50ML 50 ML IV SCH (16:51)
[2022-06-02 20:00] VITALS: BP 141/78
[2022-06-02] MEDS: ACETAMINOPHEN 325 MG TAB PO PRN (20:11)
[2022-06-02] MEDS: (Rosuvastatin Calcium 5 MG) PO SCH (20:17)
[2022-06-02] MEDS ORDERED: METF750T46 PO (20:30)
[2022-06-03] VITALS: BP 145/90
[2022-06-03] MEDS: DEXTROSE 5%-LACTATED RINGERS 1,000 ML IV SCH ×3 (03:30→19:30)
[2022-06-03 04:00] VITALS: BP 128/79
[2022-06-03] MEDS: MEROPENEM 1 GM VIAL IVP SCH ×3 (05:11→22:34)
[2022-06-03] MEDS: INSULIN HUMULIN R 100 UNIT/ML 3ML SQ SCH ×4 (06:09→21:00)
[2022-06-03] MEDS: VANCOMYCIN 750MG VIAL IVPB SCH ×3 (06:09→23:26)
[2022-06-03] MEDS: ACETAMINOPHEN 325 MG TAB PO PRN ×2 (06:19→16:46)
[2022-06-03] MEDS: BUDESONIDE 0.5 MG/2 ML INH IH SCH ×2 (07:02→19:34)
[2022-06-03 07:13] LABS: MAGNESIUM 1.9 mg/dL (1.80-2.40); POTASSIUM 3.7 mmol/L (3.5-5.1)
[2022-06-03 08:00] VITALS: BP 142/85
[2022-06-03] MEDS: ASPIRIN 81 MG EC TAB PO SCH (08:00)
[2022-06-03] MEDS: LOSARTAN 25 MG TABLET PO SCH (08:00)
[2022-06-03] MEDS: AMLODIPINE 5 MG TAB PO SCH (08:00)
[2022-06-03] MEDS: DOXYCYCLINE HYCLATE 100 MG TABLET PO SCH ×2 (08:00→22:41)
[2022-06-03] MEDS: PANTOPRAZOLE 40 MG/VIAL IVP SCH (11:07)
[2022-06-03] MEDS: LACTULOSE 20 GM/30 ML UDCUP PO SCH ×3 (11:07→22:00)
[2022-06-03 11:55] VITALS: BP 122/82
[2022-06-03 11:58] LABS: HEMATOCRIT 36.5 % (36-48); MEAN CORPUSCULAR HEMOGLOBIN 25.4 pg (27.0-33.0); MEAN CORPUSCULAR HGB CONC 32.3 g/dL (32.0-36.0); MEAN CORPUSCULAR VOLUME 78.5 fL (79-99); RED BLOOD CELL COUNT(AUTO) 4.65 MIL/uL (4.00-5.50); WHITE BLOOD COUNT (AUTO) 10.3 K/uL (4.8-10.8)
[2022-06-03 12:10] LABS: CREATININE 0.6 mg/dL (0.5-1.5)
[2022-06-03] MEDS: DICYCLOMINE HCL 20 MG TAB PO SCH (14:00)
[2022-06-03] MEDS: SIMETHICONE 80 MG TAB.CHEW PO SCH (14:00)
[2022-06-03 14:40] LABS: INR 0.95 (0.85-1.15); PROTHROMBIN TIME 10.4 SEC (9.6-11.6)
[2022-06-03 14:41] LABS: PARTIAL THROMBOPLASTIN TIME 30.3 SEC (26.3-35.5)
[2022-06-03 16:00] VITALS: BP 149/81
[2022-06-03 20:00] VITALS: BP 153/90
[2022-06-03] MEDS: (Rosuvastatin Calcium 5 MG) PO SCH (21:00)
[2022-06-03] MEDS: ACETAMINOPHEN 500 MG TABLET PO PRN (22:48)
[2022-06-03] MEDS: MAGNESIUM 2GM PREMIX 50ML 50 ML IV SCH (22:50)
[2022-06-04] VITALS (27 sets, daily range): BP systolic 116–150; BP diastolic 53–96
[2022-06-04] MEDS: MEROPENEM 1 GM VIAL IVP SCH ×3 (04:14→20:59)
[2022-06-04 04:46] LABS: BASOPHILS % (AUTO) 0.9 % (0.0-5.0); EOSINOPHILS % (AUTO) 1.1 % (0.0-8.0); HEMATOCRIT 37.8 % (36-48); MEAN CORPUSCULAR HEMOGLOBIN 25.5 pg (27.0-33.0); MEAN CORPUSCULAR HGB CONC 32.3 g/dL (32.0-36.0); MEAN CORPUSCULAR VOLUME 78.9 fL (79-99); MONOCYTES % (AUTO) 3.8 % (3.0-13.0); PLATELET COUNT (AUTO) 311 K/uL (130-400); RED BLOOD CELL COUNT(AUTO) 4.79 MIL/uL (4.00-5.50); RED CELL DISTRIBUTION WIDTH 14.4 % (11.0-15.5); WHITE BLOOD COUNT (AUTO) 11.5 K/uL (4.8-10.8)
[2022-06-04 04:58] LABS: ALBUMIN 2.3 g/dL (3.5-5.0); CREATININE 0.6 mg/dL (0.5-1.5); MAGNESIUM 2.2 mg/dL (1.80-2.40); POTASSIUM 3.8 mmol/L (3.5-5.1); TOTAL PROTEIN, SERUM 6.7 g/dL (6.0-8.3)
[2022-06-04] MEDS: VANCOMYCIN 750MG VIAL IVPB SCH ×4 (05:56→22:55)
[2022-06-04] MEDS: LACTULOSE 20 GM/30 ML UDCUP PO SCH ×4 (06:00→21:43)
[2022-06-04] MEDS: BUDESONIDE 0.5 MG/2 ML INH IH SCH ×2 (06:54→19:03)
[2022-06-04] MEDS: INSULIN HUMULIN R 100 UNIT/ML 3ML SQ SCH ×4 (06:55→21:00)
[2022-06-04] MEDS ORDERED: MIDAZOLAM HCL 1 MG/ML 2ML VIAL ONE (07:18)
[2022-06-04] MEDS ORDERED: GLYCOPYRROLATE 1 MG/5 ML SYRINGE ONE (07:18)
[2022-06-04] MEDS ORDERED: LIDOCAINE PF 100MG/5ML (2%) SYRINGE 5ML ONE (07:18)
[2022-06-04] MEDS ORDERED: SUCCINYLCHOLINE 200MG/10ML SYR ONE (07:18)
[2022-06-04] MEDS ORDERED: DEXAMETHASONE SOD PHOSPHATE 10MG/ML 1ML VIAL ONE (07:18)
[2022-06-04] MEDS ORDERED: NEOSTIGMINE 5MG/5ML SYR IV ONE (07:19)
[2022-06-04] MEDS ORDERED: PROPOFOL 10 MG/ML 20ML VIAL IV ONE (07:19)
[2022-06-04] MEDS ORDERED: ONDANSETRON 4MG INJ ONE ×2 (07:19→08:25)
[2022-06-04] MEDS ORDERED: ROCURONIUM 10MG/1ML SYR 10 MG/ML ML ONE (07:19)
[2022-06-04] MEDS ORDERED: FENTANYL CITRATE PF 50 MCG/1 ML 5ML AMP IV ONE (07:19)
[2022-06-04] MEDS ORDERED: ALBUMIN (HUMAN) 5% 500 ML IV ONE (07:55)
[2022-06-04] MEDS ORDERED: 0.9%NACL 1000ML 1,000 ML IV ONE (08:02)
[2022-06-04] MEDS: ASPIRIN 81 MG EC TAB PO SCH (09:00)
[2022-06-04] MEDS: LOSARTAN 25 MG TABLET PO SCH (09:00)
[2022-06-04] MEDS: AMLODIPINE 5 MG TAB PO SCH (09:00)
[2022-06-04] MEDS: DOXYCYCLINE HYCLATE 100 MG TABLET PO SCH ×2 (09:00→20:59)
[2022-06-04] MEDS ORDERED: ROPIVACAINE 0.5% 5MG/ML 30ML IJ ONE (09:03)
[2022-06-04] MEDS ORDERED: MEPERIDINE-PF 25 MG/ML SYG ONE (09:04)
[2022-06-04] MEDS: PANTOPRAZOLE 40 MG/VIAL IVP SCH (10:30)
[2022-06-04] MEDS: DICYCLOMINE HCL 20 MG TAB PO SCH (14:00)
[2022-06-04] MEDS: SIMETHICONE 80 MG TAB.CHEW PO SCH (14:00)
[2022-06-04] MEDS: MEPERIDINE-PF 50 MG/ML SYG IVP PRN (14:52)
[2022-06-04] MEDS ORDERED: SERT-439 PO (17:39)
[2022-06-04] MEDS ORDERED: EMPA25TA PO (17:39)
[2022-06-04] MEDS ORDERED: SERTRALINE HCL 50 MG TABLET PO SCH (18:30)
[2022-06-04] MEDS ORDERED: SIMETHICONE 80 MG TAB.CHEW PO SCH (20:00)
[2022-06-04] MEDS: (Rosuvastatin Calcium 5 MG) PO SCH (21:00)
[2022-06-04] MEDS: DEXTROSE 5%-LACTATED RINGERS 1,000 ML IV SCH (21:08)
[2022-06-05 04:21] VITALS: BP 138/84
[2022-06-05] MEDS: MEROPENEM 1 GM VIAL IVP SCH ×3 (04:35→20:33)
[2022-06-05 04:37] LABS: BASOPHILS % (AUTO) 0.3 % (0.0-5.0); EOSINOPHILS % (AUTO) 0.1 % (0.0-8.0); HEMATOCRIT 34.1 % (36-48); LYMPHOCYTES % (AUTO) 10.4 % (21.0-51.0); MEAN CORPUSCULAR HEMOGLOBIN 25.8 pg (27.0-33.0); MEAN CORPUSCULAR HGB CONC 32.8 g/dL (32.0-36.0); MEAN CORPUSCULAR VOLUME 78.6 fL (79-99); NEUTROPHILS % (AUTO) 84.5 % (40.0-77.0); PLATELET COUNT (AUTO) 324 K/uL (130-400); RED BLOOD CELL COUNT(AUTO) 4.34 MIL/uL (4.00-5.50); RED CELL DISTRIBUTION WIDTH 14.3 % (11.0-15.5); WHITE BLOOD COUNT (AUTO) 15.8 K/uL (4.8-10.8)
[2022-06-05 04:54] LABS: CREATININE 0.6 mg/dL (0.5-1.5)
[2022-06-05] MEDS: DEXTROSE 5%-LACTATED RINGERS 1,000 ML IV SCH (06:18)
[2022-06-05] MEDS: INSULIN HUMULIN R 100 UNIT/ML 3ML SQ SCH ×4 (06:24→20:56)
[2022-06-05] MEDS: LACTULOSE 20 GM/30 ML UDCUP PO SCH ×3 (06:24→20:34)
[2022-06-05] MEDS: VANCOMYCIN 750MG VIAL IVPB SCH ×2 (06:25→14:55)
[2022-06-05] MEDS: ONDANSETRON 4MG INJ IVP PRN ×3 (06:39→22:23)
[2022-06-05] MEDS: MEPERIDINE-PF 50 MG/ML SYG IVP PRN ×3 (06:40→22:24)
[2022-06-05] MEDS: BUDESONIDE 0.5 MG/2 ML INH IH SCH ×2 (06:53→18:52)
[2022-06-05 08:00] VITALS: BP 131/81
[2022-06-05] MEDS: SERTRALINE HCL 50 MG TABLET PO SCH (08:11)
[2022-06-05] MEDS: LOSARTAN 25 MG TABLET PO SCH (08:11)
[2022-06-05] MEDS: DOXYCYCLINE HYCLATE 100 MG TABLET PO SCH ×2 (08:11→20:33)
[2022-06-05] MEDS: AMLODIPINE 5 MG TAB PO SCH (08:11)
[2022-06-05] MEDS: ASPIRIN 81 MG EC TAB PO SCH (08:11)
[2022-06-05] MEDS: PANTOPRAZOLE 40 MG/VIAL IVP SCH (11:42)
[2022-06-05 11:50] VITALS: BP 127/84
[2022-06-05] MEDS: DICYCLOMINE HCL 20 MG TAB PO SCH (14:00)
[2022-06-05 16:00] VITALS: BP 122/76
[2022-06-05] MEDS ORDERED: SIMETHICONE 80 MG TAB.CHEW ONE (18:49)
[2022-06-05 19:55] VITALS: BP 131/82
[2022-06-05] MEDS: (Rosuvastatin Calcium 5 MG) PO SCH (20:45)
[2022-06-06] VITALS (7 sets, daily range): BP systolic 117–131; BP diastolic 71–85
[2022-06-06] MEDS: DEXTROSE 5%-LACTATED RINGERS 1,000 ML IV SCH ×3 (03:30→19:30)
[2022-06-06] MEDS: ONDANSETRON 4MG INJ IVP PRN ×3 (05:48→23:40)
[2022-06-06] MEDS: MEROPENEM 1 GM VIAL IVP SCH ×3 (05:48→22:37)
[2022-06-06] MEDS: LACTULOSE 20 GM/30 ML UDCUP PO SCH ×2 (05:54→13:46)
[2022-06-06] MEDS: MEPERIDINE-PF 50 MG/ML SYG IVP PRN ×3 (05:54→23:41)
[2022-06-06] MEDS: INSULIN HUMULIN R 100 UNIT/ML 3ML SQ SCH ×5 (05:55→20:45)
[2022-06-06] MEDS: SIMETHICONE 80 MG TAB.CHEW PO PRN (06:32)
[2022-06-06] MEDS: BUDESONIDE 0.5 MG/2 ML INH IH SCH ×2 (07:19→19:14)
[2022-06-06] MEDS: DOXYCYCLINE HYCLATE 100 MG TABLET PO SCH (09:00)
[2022-06-06] MEDS: VANCOMYCIN 1G/250ML KIT 250 ML IV SCH ×2 (09:00→20:50)
[2022-06-06] MEDS: AMLODIPINE 5 MG TAB PO SCH (09:00)
[2022-06-06] MEDS: SERTRALINE HCL 50 MG TABLET PO SCH (09:00)
[2022-06-06] MEDS: ASPIRIN 81 MG EC TAB PO SCH (09:00)
[2022-06-06] MEDS: LOSARTAN 25 MG TABLET PO SCH (09:00)
[2022-06-06] MEDS ORDERED: ENOXAPARIN SODIUM 40 MG/0.4 ML SYRINGE SQ ONE (11:00)
[2022-06-06] MEDS: PANTOPRAZOLE 40 MG/VIAL IVP SCH (11:25)
[2022-06-06] MEDS: ENOXAPARIN SODIUM 40 MG/0.4 ML SYRINGE SQ SCH (11:26)
[2022-06-06] MEDS: DICYCLOMINE HCL 20 MG TAB PO SCH (13:46)
[2022-06-06] MEDS: (Rosuvastatin Calcium 5 MG) PO SCH (19:51)
[2022-06-07 03:52] VITALS: BP 135/88
[2022-06-07] MEDS: INSULIN HUMULIN R 100 UNIT/ML 3ML SQ SCH ×4 (05:03→21:00)
[2022-06-07] MEDS: MEROPENEM 1 GM VIAL IVP SCH ×3 (05:05→21:17)
[2022-06-07 05:10] LABS: BASOPHILS % (AUTO) 0.4 % (0.0-5.0); EOSINOPHILS % (AUTO) 1.8 % (0.0-8.0); HEMATOCRIT 34.9 % (36-48); LYMPHOCYTES % (AUTO) 20.5 % (21.0-51.0); MEAN CORPUSCULAR HGB CONC 31.2 g/dL (32.0-36.0); MONOCYTES % (AUTO) 5.5 % (3.0-13.0); NEUTROPHILS % (AUTO) 71.1 % (40.0-77.0); PLATELET COUNT (AUTO) 326 K/uL (130-400); RED BLOOD CELL COUNT(AUTO) 4.36 MIL/uL (4.00-5.50); RED CELL DISTRIBUTION WIDTH 14.4 % (11.0-15.5); WHITE BLOOD COUNT (AUTO) 7.7 K/uL (4.8-10.8)
[2022-06-07 05:38] LABS: ALBUMIN 2.3 g/dL (3.5-5.0); CREATININE 0.7 mg/dL (0.5-1.5); MAGNESIUM 1.8 mg/dL (1.80-2.40); POTASSIUM 3.6 mmol/L (3.5-5.1); TOTAL PROTEIN, SERUM 6.2 g/dL (6.0-8.3)
[2022-06-07] MEDS: BUDESONIDE 0.5 MG/2 ML INH IH SCH ×2 (06:42→19:38)
[2022-06-07 07:20] VITALS: BP 129/76
[2022-06-07] MEDS: VANCOMYCIN 1G/250ML KIT 250 ML IV SCH ×2 (08:59→21:17)
[2022-06-07] MEDS: ENOXAPARIN SODIUM 40 MG/0.4 ML SYRINGE SQ SCH (09:00)
[2022-06-07] MEDS: SERTRALINE HCL 50 MG TABLET PO SCH (09:00)
[2022-06-07] MEDS: AMLODIPINE 5 MG TAB PO SCH (09:00)
[2022-06-07] MEDS: ASPIRIN 81 MG EC TAB PO SCH (09:00)
[2022-06-07] MEDS: LOSARTAN 25 MG TABLET PO SCH (09:00)
[2022-06-07] MEDS: ONDANSETRON 4MG INJ IVP PRN ×2 (09:01→18:22)
[2022-06-07] MEDS: MEPERIDINE-PF 50 MG/ML SYG IVP PRN ×3 (09:02→23:51)
[2022-06-07 10:40] VITALS: BP 122/82
[2022-06-07] MEDS: SIMETHICONE 80 MG TAB.CHEW PO PRN (11:19)
[2022-06-07] MEDS: PANTOPRAZOLE 40 MG/VIAL IVP SCH (11:21)
[2022-06-07] MEDS: DICYCLOMINE HCL 20 MG TAB PO SCH (14:00)
[2022-06-07] MEDS: DEXTROSE 5%-LACTATED RINGERS 1,000 ML IV SCH ×3 (14:50→23:50)
[2022-06-07 16:02] VITALS: BP 133/75
[2022-06-07 20:00] VITALS: BP 124/78
[2022-06-07] MEDS: (Rosuvastatin Calcium 5 MG) PO SCH (21:00)
[2022-06-07] MEDS: KCL 20 MEQ ERTAB PO PRN ×2 (21:16→23:51)
[2022-06-07] MEDS: MAGNESIUM 2GM PREMIX 50ML 50 ML IV SCH (21:17)
[2022-06-08] VITALS: BP 114/69
[2022-06-08] MEDS: MEROPENEM 1 GM VIAL IVP SCH ×3 (03:31→19:58)
[2022-06-08] MEDS: SIMETHICONE 80 MG TAB.CHEW PO PRN ×2 (03:35→19:58)
[2022-06-08 04:00] VITALS: BP 112/72
[2022-06-08 05:04] LABS: BASOPHILS % (AUTO) 0.5 % (0.0-5.0); HEMATOCRIT 33.6 % (36-48); LYMPHOCYTES % (AUTO) 16.4 % (21.0-51.0); MEAN CORPUSCULAR HEMOGLOBIN 25.2 pg (27.0-33.0); MEAN CORPUSCULAR HGB CONC 31.5 g/dL (32.0-36.0); MONOCYTES % (AUTO) 5.9 % (3.0-13.0); NEUTROPHILS % (AUTO) 74.3 % (40.0-77.0); PLATELET COUNT (AUTO) 342 K/uL (130-400); RED CELL DISTRIBUTION WIDTH 14.3 % (11.0-15.5); WHITE BLOOD COUNT (AUTO) 7.6 K/uL (4.8-10.8)
[2022-06-08 05:22] LABS: ALBUMIN 2.3 g/dL (3.5-5.0); CREATININE 0.9 mg/dL (0.5-1.5); MAGNESIUM 2.3 mg/dL (1.80-2.40); POTASSIUM 4.3 mmol/L (3.5-5.1); TOTAL PROTEIN, SERUM 6.1 g/dL (6.0-8.3)
[2022-06-08] MEDS: INSULIN HUMULIN R 100 UNIT/ML 3ML SQ SCH ×4 (05:50→20:11)
[2022-06-08] MEDS: BUDESONIDE 0.5 MG/2 ML INH IH SCH ×2 (06:34→19:04)
[2022-06-08 07:35] VITALS: BP 118/72
[2022-06-08] MEDS: VANCOMYCIN 1G/250ML KIT 250 ML IV SCH ×2 (08:57→19:58)
[2022-06-08] MEDS: SERTRALINE HCL 50 MG TABLET PO SCH (08:58)
[2022-06-08] MEDS: LOSARTAN 25 MG TABLET PO SCH (08:58)
[2022-06-08] MEDS: ASPIRIN 81 MG EC TAB PO SCH (08:58)
[2022-06-08] MEDS: AMLODIPINE 5 MG TAB PO SCH (08:58)
[2022-06-08] MEDS: ENOXAPARIN SODIUM 40 MG/0.4 ML SYRINGE SQ SCH (08:59)
[2022-06-08] MEDS: DEXTROSE 5%-LACTATED RINGERS 1,000 ML IV SCH ×3 (11:30→20:02)
[2022-06-08 11:35] VITALS: BP 141/82
[2022-06-08] MEDS: ONDANSETRON 4MG INJ IVP PRN (12:25)
[2022-06-08] MEDS: MEPERIDINE-PF 50 MG/ML SYG IVP PRN ×2 (12:26→19:58)
[2022-06-08] MEDS: PANTOPRAZOLE 40 MG/VIAL IVP SCH (12:30)
[2022-06-08] MEDS: DICYCLOMINE HCL 20 MG TAB PO SCH (14:00)
[2022-06-08 15:30] VITALS: BP 149/82
[2022-06-08] MEDS: (Rosuvastatin Calcium 5 MG) PO SCH (18:15)
[2022-06-08 20:39] VITALS: BP 125/80
[2022-06-09 00:21] VITALS: BP 105/67
[2022-06-09] MEDS: SIMETHICONE 80 MG TAB.CHEW PO PRN (01:46)
[2022-06-09] MEDS: MEPERIDINE-PF 50 MG/ML SYG IVP PRN ×2 (01:46→15:49)
[2022-06-09] MEDS: MEROPENEM 1 GM VIAL IVP SCH ×3 (03:19→20:26)
[2022-06-09 04:11] VITALS: BP 116/72
[2022-06-09] MEDS: INSULIN HUMULIN R 100 UNIT/ML 3ML SQ SCH ×4 (05:28→20:25)
[2022-06-09] MEDS: BUDESONIDE 0.5 MG/2 ML INH IH SCH ×2 (06:26→18:53)
[2022-06-09 07:40] VITALS: BP 134/85
[2022-06-09] MEDS: PANTOPRAZOLE 40 MG/VIAL IVP SCH (09:14)
[2022-06-09] MEDS: LOSARTAN 25 MG TABLET PO SCH (09:16)
[2022-06-09] MEDS: ASPIRIN 81 MG EC TAB PO SCH (09:16)
[2022-06-09] MEDS: AMLODIPINE 5 MG TAB PO SCH (09:16)
[2022-06-09] MEDS: SERTRALINE HCL 50 MG TABLET PO SCH (09:16)
[2022-06-09] MEDS: ENOXAPARIN SODIUM 40 MG/0.4 ML SYRINGE SQ SCH (09:16)
[2022-06-09] MEDS: VANCOMYCIN 1G/250ML KIT 250 ML IV SCH ×2 (09:17→20:26)
[2022-06-09] MEDS: LACTULOSE 20 GM/30 ML UDCUP PO PRN ×2 (10:48→20:31)
[2022-06-09 11:45] VITALS: BP 125/80
[2022-06-09] MEDS: DICYCLOMINE HCL 20 MG TAB PO SCH (13:40)
[2022-06-09] MEDS: DEXTROSE 5%-LACTATED RINGERS 1,000 ML IV SCH ×2 (15:49→19:30)
[2022-06-09 16:33] VITALS: BP 132/81
[2022-06-09] MEDS ORDERED: MEPERIDINE-PF 50 MG/ML SYG IVP PRN (18:00)
[2022-06-09 20:05] VITALS: BP 130/84
[2022-06-09] MEDS: (Rosuvastatin Calcium 5 MG) PO SCH (20:27)
[2022-06-09] MEDS ORDERED: MEPERIDINE-PF 25 MG/ML SYG ONE (21:56)
[2022-06-10] VITALS (7 sets, daily range): BP systolic 117–142; BP diastolic 63–90
[2022-06-10] MEDS: MEROPENEM 1 GM VIAL IVP SCH ×3 (04:18→20:42)
[2022-06-10] MEDS: ACETAMINOPHEN 500 MG TABLET PO PRN (04:19)
[2022-06-10] MEDS: DEXTROSE 5%-LACTATED RINGERS 1,000 ML IV SCH ×3 (04:19→20:44)
[2022-06-10] MEDS: SIMETHICONE 80 MG TAB.CHEW PO PRN ×2 (04:21→21:56)
[2022-06-10] MEDS: INSULIN HUMULIN R 100 UNIT/ML 3ML SQ SCH ×4 (06:04→20:47)
[2022-06-10] MEDS: BUDESONIDE 0.5 MG/2 ML INH IH SCH ×2 (06:44→18:45)
[2022-06-10] MEDS: PANTOPRAZOLE 40 MG/VIAL IVP SCH (09:36)
[2022-06-10] MEDS: ASPIRIN 81 MG EC TAB PO SCH (09:37)
[2022-06-10] MEDS: AMLODIPINE 5 MG TAB PO SCH (09:37)
[2022-06-10] MEDS: LOSARTAN 25 MG TABLET PO SCH (09:37)
[2022-06-10] MEDS: SERTRALINE HCL 50 MG TABLET PO SCH (09:37)
[2022-06-10] MEDS: VANCOMYCIN 1G/250ML KIT 250 ML IV SCH ×2 (09:38→20:42)
[2022-06-10] MEDS: ENOXAPARIN SODIUM 40 MG/0.4 ML SYRINGE SQ SCH (09:39)
[2022-06-10] MEDS: DICYCLOMINE HCL 20 MG TAB PO SCH (14:00)
[2022-06-10] MEDS: LACTULOSE 20 GM/30 ML UDCUP PO PRN (19:01)
[2022-06-10] MEDS: (Rosuvastatin Calcium 5 MG) PO SCH (19:33)
[2022-06-10] MEDS ORDERED: MEPERIDINE-PF 25 MG/ML SYG ONE (20:38)
[2022-06-11] VITALS (7 sets, daily range): BP systolic 118–163; BP diastolic 76–103
[2022-06-11] MEDS: ACETAMINOPHEN 500 MG TABLET PO PRN (02:19)
[2022-06-11] MEDS: SIMETHICONE 80 MG TAB.CHEW PO PRN (02:19)
[2022-06-11] MEDS: DEXTROSE 5%-LACTATED RINGERS 1,000 ML IV SCH (03:30)
[2022-06-11] MEDS: MEROPENEM 1 GM VIAL IVP SCH ×2 (04:09→12:42)
[2022-06-11] MEDS: INSULIN HUMULIN R 100 UNIT/ML 3ML SQ SCH ×4 (05:59→20:41)
[2022-06-11] MEDS: BUDESONIDE 0.5 MG/2 ML INH IH SCH ×2 (06:05→18:24)
[2022-06-11] MEDS: PANTOPRAZOLE 40 MG/VIAL IVP SCH (10:23)
[2022-06-11] MEDS: AMLODIPINE 5 MG TAB PO SCH (10:24)
[2022-06-11] MEDS: LOSARTAN 25 MG TABLET PO SCH (10:24)
[2022-06-11] MEDS: SERTRALINE HCL 50 MG TABLET PO SCH (10:24)
[2022-06-11] MEDS: ASPIRIN 81 MG EC TAB PO SCH (10:24)
[2022-06-11] MEDS: ENOXAPARIN SODIUM 40 MG/0.4 ML SYRINGE SQ SCH (10:25)
[2022-06-11] MEDS: VANCOMYCIN 1G/250ML KIT 250 ML IV SCH (12:42)
[2022-06-11] MEDS: DICYCLOMINE HCL 20 MG TAB PO SCH (20:43)
[2022-06-11] MEDS: (Rosuvastatin Calcium 5 MG) PO SCH (20:44)
[2022-06-11] MEDS: ACETAMINOPHEN 325 MG TAB PO PRN (21:43)
[2022-06-12] VITALS: BP 110/74
[2022-06-12] MEDS: VANCOMYCIN 1G/250ML KIT 250 ML IV SCH ×3 (00:42→23:53)
[2022-06-12] MEDS ORDERED: MEROPENEM 1 GM VIAL ONE (03:30)
[2022-06-12] MEDS: MEROPENEM 1 GM VIAL IVP SCH ×3 (03:36→20:47)
[2022-06-12 04:00] VITALS: BP 124/83
[2022-06-12] MEDS: INSULIN HUMULIN R 100 UNIT/ML 3ML SQ SCH ×4 (05:14→20:46)
[2022-06-12] MEDS: BUDESONIDE 0.5 MG/2 ML INH IH SCH ×2 (06:57→18:56)
[2022-06-12 08:13] VITALS: BP 118/74
[2022-06-12 08:19] LABS: BASOPHILS % (AUTO) 0.9 % (0.0-5.0); EOSINOPHILS % (AUTO) 2.2 % (0.0-8.0); HEMATOCRIT 36.9 % (36-48); LYMPHOCYTES % (AUTO) 21.8 % (21.0-51.0); MEAN CORPUSCULAR HEMOGLOBIN 25.1 pg (27.0-33.0); MEAN CORPUSCULAR HGB CONC 30.6 g/dL (32.0-36.0); MEAN CORPUSCULAR VOLUME 81.8 fL (79-99); MONOCYTES % (AUTO) 6.6 % (3.0-13.0); NEUTROPHILS % (AUTO) 67.9 % (40.0-77.0); PLATELET COUNT (AUTO) 347 K/uL (130-400); RED BLOOD CELL COUNT(AUTO) 4.51 MIL/uL (4.00-5.50); RED CELL DISTRIBUTION WIDTH 14.7 % (11.0-15.5); WHITE BLOOD COUNT (AUTO) 6.8 K/uL (4.8-10.8)
[2022-06-12 08:47] LABS: ALBUMIN 2.7 g/dL (3.5-5.0); CREATININE 0.7 mg/dL (0.5-1.5); MAGNESIUM 1.8 mg/dL (1.80-2.40); POTASSIUM 3.6 mmol/L (3.5-5.1); TOTAL PROTEIN, SERUM 6.9 g/dL (6.0-8.3)
[2022-06-12] MEDS: ASPIRIN 81 MG EC TAB PO SCH (10:40)
[2022-06-12] MEDS: SERTRALINE HCL 50 MG TABLET PO SCH (10:40)
[2022-06-12] MEDS: LOSARTAN 25 MG TABLET PO SCH (10:40)
[2022-06-12] MEDS: PANTOPRAZOLE 40 MG/VIAL IVP SCH (10:40)
[2022-06-12] MEDS: AMLODIPINE 5 MG TAB PO SCH (10:40)
[2022-06-12] MEDS: ENOXAPARIN SODIUM 40 MG/0.4 ML SYRINGE SQ SCH (10:40)
[2022-06-12 12:01] VITALS: BP 125/86
[2022-06-12] MEDS: DICYCLOMINE HCL 20 MG TAB PO SCH (12:15)
[2022-06-12 17:06] VITALS: BP 141/91
[2022-06-12 20:00] VITALS: BP 137/88
[2022-06-12] MEDS: (Rosuvastatin Calcium 5 MG) PO SCH (20:46)
[2022-06-12] MEDS: ACETAMINOPHEN 325 MG TAB PO PRN (21:04)
[2022-06-13] VITALS: BP 136/88
[2022-06-13] MEDS: MEROPENEM 1 GM VIAL IVP SCH ×3 (03:53→20:25)
[2022-06-13 04:00] VITALS: BP 138/86
[2022-06-13] MEDS: INSULIN HUMULIN R 100 UNIT/ML 3ML SQ SCH ×4 (06:25→20:26)
[2022-06-13] MEDS: BUDESONIDE 0.5 MG/2 ML INH IH SCH ×2 (06:45→18:36)
[2022-06-13 08:46] VITALS: BP 146/82
[2022-06-13] MEDS: AMLODIPINE 5 MG TAB PO SCH (09:39)
[2022-06-13] MEDS: SERTRALINE HCL 50 MG TABLET PO SCH (09:39)
[2022-06-13] MEDS: LOSARTAN 25 MG TABLET PO SCH (09:39)
[2022-06-13] MEDS: PANTOPRAZOLE 40 MG/VIAL IVP SCH (09:40)
[2022-06-13] MEDS: ENOXAPARIN SODIUM 40 MG/0.4 ML SYRINGE SQ SCH (09:41)
[2022-06-13] MEDS: ASPIRIN 81 MG EC TAB PO SCH (09:41)
[2022-06-13 12:10] VITALS: BP 139/81
[2022-06-13] MEDS ORDERED: VANCOMYCIN 1G/250ML KIT 250 ML IV SCH ×2 (14:00→21:00)
[2022-06-13 16:54] VITALS: BP 137/62
[2022-06-13 20:00] VITALS: BP 148/82
[2022-06-13] MEDS: (Rosuvastatin Calcium 5 MG) PO SCH (20:25)
[2022-06-13] MEDS: ACETAMINOPHEN 500 MG TABLET PO PRN (21:33)
[2022-06-14] VITALS: BP 135/90
[2022-06-14] MEDS: MEROPENEM 1 GM VIAL IVP SCH ×3 (03:17→19:36)
[2022-06-14 04:00] VITALS: BP 126/79
[2022-06-14 05:50] LABS: BASOPHILS % (AUTO) 1.3 % (0.0-5.0); EOSINOPHILS % (AUTO) 2.3 % (0.0-8.0); HEMATOCRIT 38.2 % (36-48); LYMPHOCYTES % (AUTO) 26.4 % (21.0-51.0); MEAN CORPUSCULAR HEMOGLOBIN 25.3 pg (27.0-33.0); MEAN CORPUSCULAR HGB CONC 31.7 g/dL (32.0-36.0); MEAN CORPUSCULAR VOLUME 79.9 fL (79-99); MONOCYTES % (AUTO) 6.9 % (3.0-13.0); NEUTROPHILS % (AUTO) 62.8 % (40.0-77.0); PLATELET COUNT (AUTO) 323 K/uL (130-400); RED BLOOD CELL COUNT(AUTO) 4.78 MIL/uL (4.00-5.50); RED CELL DISTRIBUTION WIDTH 14.9 % (11.0-15.5); WHITE BLOOD COUNT (AUTO) 6.1 K/uL (4.8-10.8)
[2022-06-14 05:59] LABS: CREATININE 0.6 mg/dL (0.5-1.5); POTASSIUM 3.8 mmol/L (3.5-5.1)
[2022-06-14] MEDS: INSULIN HUMULIN R 100 UNIT/ML 3ML SQ SCH ×3 (06:39→16:10)
[2022-06-14] MEDS: BUDESONIDE 0.5 MG/2 ML INH IH SCH ×2 (06:45→18:57)
[2022-06-14 08:00] VITALS: BP 135/85
[2022-06-14] MEDS: ASPIRIN 81 MG EC TAB PO SCH (09:17)
[2022-06-14] MEDS: AMLODIPINE 5 MG TAB PO SCH (09:17)
[2022-06-14] MEDS: SERTRALINE HCL 50 MG TABLET PO SCH (09:17)
[2022-06-14] MEDS: LOSARTAN 25 MG TABLET PO SCH (09:17)
[2022-06-14] MEDS: ENOXAPARIN SODIUM 40 MG/0.4 ML SYRINGE SQ SCH (09:17)
[2022-06-14] MEDS: PANTOPRAZOLE 40 MG/VIAL IVP SCH (09:19)
[2022-06-14 12:00] VITALS: BP 150/98
[2022-06-14] MEDS ORDERED: MERO1VIA23 IVP (12:59)
[2022-06-14] MEDS ORDERED: LACTULOSE 20 GM/30 ML UDCUP PO ONE ×2 (13:30→21:00)
[2022-06-14] MEDS: ACETAMINOPHEN 500 MG TABLET PO PRN (16:00)
== END 2022-06-14 19:40 | DRG 853 ==
LOC: EDH 04:15 → EDHIP 12:27 → 4DH 14:30
PROVIDERS: ADMIT Internal Medicine; ATTEND Internal Medicine
PROC: 0UDB8ZZ Extraction of Endometrium, Via Natural or Artificial Opening Endoscopic (ICD-10-PCS; principal; 2022-05-30 08:51)
PROC: 0UPD8HZ Removal of Contraceptive Device from Uterus and Cervix, Via Natural or Artificial Opening Endoscopic (ICD-10-PCS; 2022-05-30 08:51)
PROC: 0W9J00Z Drainage of Pelvic Cavity with Drainage Device, Open Approach (ICD-10-PCS; 2022-06-04)
DX: A41.50 Gram-negative sepsis, unspecified (principal); K65.1 Peritoneal abscess; K65.9 Peritonitis, unspecified; K57.80 Diverticulitis of intestine, part unspecified, with perforation and abscess without bleeding; N39.0 Urinary tract infection, site not specified; Z16.24 Resistance to multiple antibiotics; E11.9 Type 2 diabetes mellitus without complications; Z20.822 Contact with and (suspected) exposure to COVID-19; N73.9 Female pelvic inflammatory disease, unspecified; I10 Essential (primary) hypertension; N81.10 Cystocele, unspecified; K66.0 Peritoneal adhesions (postprocedural) (postinfection); R65.20 Severe sepsis without septic shock; N70.93 Salpingitis and oophoritis, unspecified; R53.81 Other malaise; K59.00 Constipation, unspecified; K52.9 Noninfective gastroenteritis and colitis, unspecified; E78.5 Hyperlipidemia, unspecified; K76.0 Fatty (change of) liver, not elsewhere classified; T50.Z95A Adverse effect of other vaccines and biological substances, initial encounter; E66.9 Obesity, unspecified; E87.6 Hypokalemia; N83.202 Unspecified ovarian cyst, left side; Z30.430 Encounter for insertion of intrauterine contraceptive device; Y92.89 Other specified places as the place of occurrence of the external cause; Z83.3 Family history of diabetes mellitus; Z90.49 Acquired absence of other specified parts of digestive tract; Z98.82 Breast implant status
CPT/HCPCS: 36415; 70450; 71045; 74176; 74178; 76856; 80048; 80053; 80202; 80305; 81001; 81025; 82948; 83036; 83605; 83690; 83735; 83880; 84132; 84145; 84439; 84443; 84481; 84484; 84703; 85025; 85027; 85610; 85730; 86140; 86304; 86850; 86900; 86901; 87040; 87070; 87076; 87077; 87088; 87186; 87324; 87486; 87635; 87797; 87804; 88300; 88305; 88341; 88342; 94640; 94664; A4344; A4351; C1894; C9113; G0378; J0330; J0696; J1100; J1650; J1815; J1885; J2001; J2175; J2185; J2250; J2270; J2405; J2543; J2704; J2710; J2795; J3010; J3370; J3475; J3480; J3490; J7030; J7120; P9045; Q9967

== ENCOUNTER 2023-10-14 03:59 | Emergency (ER) | payer OTHER ==
[~2023-10-14] VITALS: Ht 157.5 cm; Wt 77.1 kg
[~2023-10-14 03:59] MED LIST changes: +AMLO-257 PO; +EMPA25TA PO; +MERO1VIA23 IVP; +METF750T46 PO; -ROSU5TAB12 PO; +ROSU5TAB43 PO; +SERT-439 PO
[2023-10-14 04:29] LABS: BASOPHILS # (AUTO) 0.04 K/uL (0.00-0.20); BASOPHILS % (AUTO) 0.5 % (0.0-5.0); EOSINOPHILS # (AUTO) 0.15 K/uL (0.00-0.70); EOSINOPHILS % (AUTO) 2.1 % (0.0-8.0); HEMATOCRIT 37.2 % (36-48); IMMATURE GRANULOCYTE ABSOLUTE 0.03 K/uL (0-1); LYMPHOCYTES # (AUTO) 1.6 K/uL (1.0-4.8); LYMPHOCYTES % (AUTO) 21.3 % (21.0-51.0); MEAN CORPUSCULAR HGB CONC 32.3 g/dL (32.0-36.0); MEAN CORPUSCULAR VOLUME 80.7 fL (79-99); MONOCYTES # (AUTO) 0.4 K/uL (0.1-1.0); MONOCYTES % (AUTO) 5.2 % (3.0-13.0); NEUTROPHILS # (AUTO) 5.1 K/uL (1.8-7.7); NEUTROPHILS % (AUTO) 70.5 % (40.0-77.0); PLATELET COUNT (AUTO) 244 K/uL (130-400); RED BLOOD CELL COUNT(AUTO) 4.61 MIL/uL (4.00-5.50); RED CELL DISTRIBUTION WIDTH 14.5 % (11.0-15.5); WHITE BLOOD COUNT (AUTO) 7.3 K/uL (4.8-10.8)
[2023-10-14] MEDS: FAMOTIDINE 20MG TAB PO ONE (04:35)
[2023-10-14] MEDS: DICYCLOMINE 20MG (10MG/ML) AMP IM ONE (04:35)
[2023-10-14] MEDS: ONDANSETRON 4MG INJ IVP ONE (04:35)
[2023-10-14] MEDS: HYDROMORPHONE 1 MG INJ IVP ONE (04:35)
[2023-10-14] MEDS: 0.9%NACL 1000ML 1,002 ML IV ONE (04:35)
[2023-10-14 04:37] LABS: CREATININE 0.7 mg/dL (0.5-1.0); POTASSIUM 3.5 mmol/L (3.5-5.1)
[2023-10-14 04:42] LABS: ALBUMIN 3.3 g/dL (3.5-5.0); BILIRUBIN,TOTAL 0.2 mg/dL (0.2-1.0); TOTAL PROTEIN, SERUM 7.3 g/dL (6.0-8.3)
[2023-10-14] MEDS: LACTATED RINGERS 1000ML 1,000 ML IV ONE (05:28)
[2023-10-14 05:40] LABS: APPEARANCE,URINE CLEAR (CLEAR); BILIRUBIN,URINE NEGATIVE (NEGATIVE); COLOR,URINE COLORLESS (YELLOW); GLUCOSE, URINE (UA) NEGATIVE (NEGATIVE); KETONES,URINE NEGATIVE (NEGATIVE); LEUKOCYTE ESTERASE ,URINE NEGATIVE Leu/uL (NEGATIVE); NITRATE,URINE NEGATIVE (NEGATIVE); OCCULT BLOOD,URINE NEGATIVE (NEGATIVE); PH,URINE 6.5 (5.0-8.0); PROTEIN,URINE NEGATIVE (NEGATIVE); UROBILINOGEN,URINE 0.2 mg/dL (0.2-1.0)
[2023-10-14 05:41] LABS: ADD UA MICROSCOPIC NO
[2023-10-14] MEDS ORDERED: IOHEXOL 350 MG/ML 100ML INFUS..BTL IV ONE (06:00)
[2023-10-14 10:41] VITALS: BP 131/78; PULSE 67; RESP 17; O2SAT 97
== END 2023-10-14 10:50 | disposition home or self-care (01) ==
LOC: EDH 03:59
DX: K43.9 Ventral hernia without obstruction or gangrene (principal); R11.2 Nausea with vomiting, unspecified; I10 Essential (primary) hypertension; E78.5 Hyperlipidemia, unspecified; E11.9 Type 2 diabetes mellitus without complications; F32.A Depression, unspecified; F41.9 Anxiety disorder, unspecified; Z79.82 Long term (current) use of aspirin; Z79.84 Long term (current) use of oral hypoglycemic drugs; Z79.899 Other long term (current) drug therapy; Z90.49 Acquired absence of other specified parts of digestive tract; Z98.890 Other specified postprocedural states
CPT/HCPCS: 99285; 74177; 96374; 71045; 96375; 84484; 80053; 83690; 85025; 81003; 36415; 96372; 93005; J7120; J1170; J7030; J2405; J0500; Q9967

== ENCOUNTER 2023-12-21 21:24 | Emergency (ER) | payer OTHER ==
[~2023-12-21] VITALS: Ht 152.4 cm; Wt 76.7 kg
[2023-12-21 22:04] LABS: BASOPHILS # (AUTO) 0.04 K/uL (0.00-0.20); BASOPHILS % (AUTO) 0.4 % (0.0-5.0); EOSINOPHILS # (AUTO) 0.07 K/uL (0.00-0.70); EOSINOPHILS % (AUTO) 0.8 % (0.0-8.0); HEMATOCRIT 38.5 % (36-48); IMMATURE GRANULOCYTE ABSOLUTE 0.04 K/uL (0-1); LYMPHOCYTES # (AUTO) 0.8 K/uL (1.0-4.8); LYMPHOCYTES % (AUTO) 8.8 % (21.0-51.0); MEAN CORPUSCULAR HEMOGLOBIN 26.1 pg (27.0-33.0); MEAN CORPUSCULAR HGB CONC 32.7 g/dL (32.0-36.0); MEAN CORPUSCULAR VOLUME 79.7 fL (79-99); MONOCYTES # (AUTO) 0.3 K/uL (0.1-1.0); MONOCYTES % (AUTO) 3.5 % (3.0-13.0); NEUTROPHILS # (AUTO) 7.7 K/uL (1.8-7.7); NEUTROPHILS % (AUTO) 86.1 % (40.0-77.0); PLATELET COUNT (AUTO) 226 K/uL (130-400); RED BLOOD CELL COUNT(AUTO) 4.83 MIL/uL (4.00-5.50); RED CELL DISTRIBUTION WIDTH 13.8 % (11.0-15.5); WHITE BLOOD COUNT (AUTO) 8.9 K/uL (4.8-10.8)
[2023-12-21 22:12] LABS: CREATININE 0.7 mg/dL (0.5-1.0); POTASSIUM 3.5 mmol/L (3.5-5.1)
[2023-12-21 22:18] LABS: ALBUMIN 3.5 g/dL (3.5-5.0); BILIRUBIN,DIRECT 0.1 mg/dL (0.0-0.3); BILIRUBIN,TOTAL 0.2 mg/dL (0.2-1.0); TOTAL PROTEIN, SERUM 7.7 g/dL (6.0-8.3)
[2023-12-21] MEDS: PANTOPrazole 40 MG/VIAL IVP ONE (22:23)
[2023-12-21] MEDS: DICYCLOMINE 20MG (10MG/ML) AMP IM ONE (22:24)
[2023-12-21] MEDS: 0.9%NACL 1000ML 1,000 ML IV ONE (22:24)
[2023-12-21] MEDS: ondanSETRON 4MG INJ IVP ONE (22:24)
[2023-12-21] MEDS ORDERED: IOHEXOL 350 MG/ML 100ML INFUS..BTL IV ONE (22:46)
[2023-12-21] MEDS: ketOROlac 30MG VIAL (30MG/ML) IVP ONE (23:16)
[2023-12-22] VITALS: BP 128/88; PULSE 94; RESP 16; TEMP 98.2; O2SAT 99
== END 2023-12-22 00:16 | disposition left against medical advice (07) ==
LOC: EDH 21:24
DX: R10.84 Generalized abdominal pain (principal); R11.2 Nausea with vomiting, unspecified; R19.7 Diarrhea, unspecified; E11.9 Type 2 diabetes mellitus without complications; I10 Essential (primary) hypertension; E78.00 Pure hypercholesterolemia, unspecified; Z79.82 Long term (current) use of aspirin; Z79.899 Other long term (current) drug therapy; Z98.890 Other specified postprocedural states; Z79.84 Long term (current) use of oral hypoglycemic drugs
CPT/HCPCS: 99285; 74177; 96374; 96375; 96361; 80076; 80048; 83690; 85025; 36415; 96372; J7030; J2405; J1885; J2470; J0500; Q9967

== ENCOUNTER → 2024-03-23 | Outpatient (CLI) | payer OTHER ==
[2024-03-22 23:00] VITALS: PULSE 74; RESP 20
[~2024-03-23] MED LIST changes: -ROSU5TAB43 PO; +ROSU5TAB51 PO
[2024-03-23 21:56] VITALS: PULSE 78; RESP 28
[2024-03-23 23:30] VITALS: PULSE 76; RESP 20
[2024-03-24] VITALS (10 sets, daily range): PULSE 72–76; RESP 14–20
== END | disposition home or self-care (01) ==
LOC: SLP 20:25
PROVIDERS: ATTEND Family Medicine
DX: G47.33 Obstructive sleep apnea (adult) (pediatric) (principal)
CPT/HCPCS: 95810

== ENCOUNTER → 2024-05-22 | Outpatient (CLI) | payer OTHER ==
[2024-05-22 22:47] VITALS: PULSE 77; RESP 14
[2024-05-22 22:49] VITALS: PULSE 79; RESP 14
[2024-05-22 23:15] VITALS: PULSE 77; RESP 14
[2024-05-22 23:44] VITALS: PULSE 78; RESP 15
[2024-05-22 23:51] VITALS: PULSE 74; RESP 13
[2024-05-22 23:55] VITALS: PULSE 74; RESP 18
[2024-05-23] VITALS (13 sets, daily range): PULSE 66–76; RESP 12–19
== END | disposition home or self-care (01) ==
LOC: SLP 20:18
PROVIDERS: ATTEND Family Medicine
DX: G47.33 Obstructive sleep apnea (adult) (pediatric) (principal)
CPT/HCPCS: 95811

== ENCOUNTER → 2025-02-05 | Outpatient (CLI) | payer OTHER ==
--- NOTE | 2025-02-11 10:18 | HMCIMG ---
CLINICAL INDICATION: Unspecified menopausal and perimenopausal disorder COMPARISON: None TECHNIQUE: Bone densitometry is performed of the lumbar spine and left hip. FINDINGS: Total BMD of lumbar spine is 0.940 g/cm2 with a T-score of -1.0 and Z-score is -0.1 Total BMD of left hip is 1. 030 g/cm2 with a T-score of 0 .5 and Z-score is 1.0. FRAX SCORE: The 10 year fracture risk for a major osteoporotic fracture and hip fracture spine total hip total or below -1.0 IMPRESSION: 1. Normal lumbar spine 2. Normal left hip 3. I would recommend follow-up in 2 years World Health Organization criteria for BMD interpretation classify patients as Normal (T-score at or above -1.0), Osteopenic (T-score between -1.0 and -2.5), or Osteoporotic (T-score at or below -2.5). FRAX SCORE: A. All treatment decisions require clinical judgment and consideration of individual patient factors, including patient preferences, comorbidities, previous drug use, risk factors not captured in the FRAX model (e.g., frailty, falls, vitamin D deficiency, increased bone turnover, interval significant decline in bone density) and possible [id number]-estimation of fracture risk by FRAX. B. In addition, the NOF Guide recommends that FDA-approved medical therapies be considered in postmenopausal women and men age greater than or equal to 50 years with a: i. Hip or vertebral (clinical or morphometric) fracture. ii. T-score of less than or equal to -2.5 at the spine or hip. iii. Ten-year fracture probability by FRAX of greater than or equal to 3% for hip fracture of greater than or equal to 20% for major osteoporotic fracture.
== END | disposition home or self-care (01) ==
LOC: RAH 11:03
PROVIDERS: ATTEND Family Medicine
DX: N95.9 Unspecified menopausal and perimenopausal disorder (principal)
CPT/HCPCS: 77080

== ENCOUNTER → 2025-02-11 | Outpatient (CLI) | payer OTHER ==
[2025-02-11] MEDS: REGADENOSON 0.4 MG/5 ML PF SYG IVP ONE (08:30)
--- NOTE | 2025-02-11 13:39 | HMCSR ---
APPROVED REPORT Height: 5 ft 0in Weight: 172 lbs TEST INDICATIONS Abnormal ECG The imaging protocol used to acquire images was Rest Tc-99m/stress Tc-99m 1 day Consent: The procedure was explained and understood by the patient. Informerd consent was witnessed by Yolanda Miles RN First, low dose rest was performed then high dose stress. RESTING DATA: The resting ekg shows: NSR Rest SPECT myocardial perfusion imaging was performed in supine position minutes following the intravenous injection of 10 mCi of Tc-99 Sestamibi. Time of rest injection: 08:45: Date: 02/11/2025 PHARMACOLOGIC STRESS: Pharmacologic stress test was performed by injecting regadenoson 0.4 mg IV push followed by the intravenous injection of 30 mCi of Tc-99 Sestamibi. Time of stress injection: 11:21: Date: 02/11/2025 Heart Rate at time of stress injection: 71 bpm. Gated Stress SPECT was performed 60 minutes after stress injection. The images were gated to evaluate regional wall motion and calculate left ventricular ejection fraction. STRESS DETAILS Reason for Termination: Infusion complete Stress Symptoms: Dyspnea, Stomach Pain Max HR Achieved: 105 bpm % of APMHR Achieved: 73 Max Blood Pressure: 146/67 mmHg Stress ECG: NSR Study quality was good. Lung uptake was Normal. Artifact: No artifact IMPRESSION Normal pharmacologic nuclear stress test. Conclusion TID 0.72. LVEF 75%. Normal perfusion.
== END | disposition home or self-care (01) ==
LOC: RAH 02-07 06:52
PROVIDERS: ATTEND Internal Medicine Cardiovascular Disease
DX: R94.31 Abnormal electrocardiogram [ECG] [EKG] (principal)
CPT/HCPCS: 78452; 93017; J2785; A9500 ×2

== ENCOUNTER 2025-03-09 08:50 | Emergency (ER) | payer OTHER ==
[~2025-03-09] VITALS: Ht 152.4 cm; Wt 75.3 kg
--- NOTE | 2025-03-09 09:27 | ERN ---
ED Note History of Present Illness Stated Complaint: ABDOMINAL PAIN Chief Complaint: Abdominal Pain Time Seen by MD: 08:56 Dictation: This is a 49-year-old female who presented to the emergency room with complaints of lower abdominal pain going on for 3 days. Mostly in the suprapubic area. She also reports frequency, dysuria. She also reported that she has had fever with chills cough body aches generalized weakness headaches. She denied any nausea vomitings diarrhea. Temperature 100.3 pulse 100 respirations 18 blood pressure 105/67 with a pulse oximetry of 98% on room air Chronic medical problems include diabetes mellitus, diverticulosis, hypertension, hypercholesterolemia Allergies: Coded Allergies: No Known Allergies (Verified Allergy, Unknown, 07/28/18) Home Meds Active Scripts Meropenem (Meropenem) 1 Gm Vial, 1 GM IVP Q8H, #60 VIAL Prov:YESY WALTERS MD 06/14/22 Cephalexin Monohydrate (Keflex) 500 Mg Cap, 500 MG PO BID for 2 Days, #4 CAP 0 Refills Prov:JOHNATHAN FARAH MD 02/21/22 Aspirin (ASPIRIN 81 MG ECTAB) 81 Mg Ectab, 81 MG PO DAILY for 30 Days, #30 TAB.EC 0 Refills Prov:JOHNATHAN FARAH MD 02/21/22 Losartan Potassium (Losartan Potassium) 25 Mg Tablet, 25 MG PO DAILY for 30 Days, #30 TAB 0 Refills Prov:JOHNATHAN FARAH MD 02/21/22 Reported Medications Empagliflozin (Jardiance) 25 Mg Tablet, 12.5 MG PO HS, TAB 06/04/22 Sertraline HCl (Sertraline HCl) 50 Mg Tablet, 50 MG PO DAILY, TAB 06/04/22 Metformin HCl (Metformin HCl ER) 750 Mg Tab.er.24h, 750 MG PO TID, TAB 06/02/22 Amlodipine Besylate (Amlodipine Besylate) 5 Mg Tablet, 5 MG PO DAILY, TAB 05/31/22 Rosuvastatin Calcium (Rosuvastatin Calcium) 5 Mg Tablet, 5 MG PO HS, TAB 02/20/22 Multivitamin (One Daily Multivitamin) 1 Each Tablet, 1 EACH PO DAILY, TAB 08/21/15 Past Medical History Past Medical History: Diabetes-Type II, Diverticulosis, High Cholesterol, Hypertension Additional Past Medical Hx: ESBL Surgical History: Appendectomy, Other, Surgical History Other: DIVERTICULOSIS SX, HERNIA REPAIR Family History: Negative Social History: Negative History: Not Applicable RN Note Reviewed/Agreed w/PFSH: Yes Review of System Dictation Constitutional: Negative for fever, positive for chills, and generalized body aches Eyes: Negative for injury, pain,redness, and discharge ENT: Negative for injury,pain or swelling Cardiovascular: Negative for chest pain, palpitations, and edema Respiratory: Negative for shortness of breath, positive for cough, and congestion Abdomen/GI: Positive for abdominal pain, nausea, vomiting, diarrhea, and constipation Back: Negative for injury and pain : Negative for injury, bleeding and discharge MS/Extremity: Negative for injury and deformity Skin: Negative for rash, and discoloration Neuro: Negative for headache, weakness, numbness, tingling, and seizure Psych: Negative for suicide ideation, homicidal ideation, and hallucinations Initial Vital Sign VS Vital Signs Date Time Temp Pulse Resp B/P (MAP) Pulse Ox O2 Delivery O2 Flow Rate FiO2 03/09/25 08:58 100.2 100 18 105/67 98 Room Air 0 03/09/25 09:39 21 Physical Exam Dictation General: awake, alert, NAD Head/Face: Normocephalic, atraumatic Eyes: PERRL, EOMI, vision at baseline ENT: oral cavity clear, TMs clear, no signs of infection Neck: Trachea midline, supple, no nuchal rigidity Cardiovascular: RRR, normal S1/S2, No MRGs, no JVD Respiratory: CTAB, no respiratory distress, No rales or wheezes Abdomen: Soft, non-tender, non-distended, normal bowel sounds, no guarding or rebound. Skin: Warm, dry, normal turgor, no rash MS/Extremity: Pulses equal, no cyanosis, neurovascular intact, FROM Neuro: COAx4, GCS 15, strength 5/5, CN 2-12 intact, normal cerebellar exam, normal gait, Psych: Normal behavior, mood, and affect normal Extremities-trace edema without any palpable cords, Homans sign is negative Results (Laboratory/Radiology) Laboratory/Radiology Laboratory Tests Test 03/09/25 09:30 03/09/25 09:35 03/09/25 09:59 Influenza Type A Antigen Negative For Type A Influenza Type B Antigen Negative For Type B SARS-CoV-2 Antigen (Rapid) PRESUMPTIVE NEGATIVE Group A Streptococcus Rapid negative (NEGATIVE) Urine Color YELLOW (YELLOW) Urine Appearance HAZY (CLEAR) Urine pH 6.0 (5.0-8.0) Urine Specific [place] 1.011 (1.001-1.031) Urine Protein 20 mg/dL (NEGATIVE) H Urine Glucose (UA) NEGATIVE mg/dL (NEGATIVE) Urine Ketones NEGATIVE mg/dL (NEGATIVE) Urine Occult Blood MODERATE (NEGATIVE) H Urine Nitrate NEGATIVE (NEGATIVE) Urine Bilirubin NEGATIVE mg/dL (NEGATIVE) Urine Urobilinogen 0.2 mg/dL (0.2-1.0) Urine Leukocyte Esterase 500 [place]/uL (NEGATIVE) H Urine RBC 26-50 /HPF (0-1) H Urine WBC TNTC /HPF (0-1) H Urine Squamous Epithelial Cells MANY /HPF (0-2) Urine Bacteria FEW /HPF (None Seen) Sodium Level 134 mmol/L (136-145) L Potassium Level 4.3 mmol/L (3.5-5.1) Chloride Level 99 mmol/L (101-111) L Carbon Dioxide Level 28 mmol/L (21-32) Blood Urea Nitrogen 7 mg/dL (7-18) Creatinine 0.6 mg/dL (0.5-1.0) Glomerular Filtration Rate Calc 109 mL/min (>90) Random Glucose 137 mg/dL (70-105) H Total Calcium 8.4 mg/dL (8.5-10.1) L Lipase 31 U/L (16-77) Labs Reviewed?: Yes ED Course ED Course Orders Procedure Category Date Status Time Urinalysis Profile LAB 03/09/25 Complete 09:22 Ketorolac PHA 03/09/25 Complete Tromethamine 30mg/Ml 09:30 Lipase LAB 03/09/25 Complete 09:22 Basic Metabolic Panel LAB 03/09/25 Complete 09:22 Influenza Type A & B, LAB 03/09/25 Complete Rapid 09:22 Covid19 (Sars Antigen LAB 03/09/25 Complete Rapid) 09:22 Rapid (Group A Strep) LAB 03/09/25 Complete 09:22 Culture Urine JAGDISH 03/09/25 In Process 09:52 0.9% Nacl 500ml PHA 03/09/25 Complete Iv.Soln (Ns 500ml 10:30 Ceftriaxone 1g Vial PHA 03/09/25 Complete (Rocephine 1g Inj) 10:30 Current Medications Medications (Trade) Dose Ordered Sig/Fabiano Route PRN Reason Start Time Stop Time Status Last Admin Dose Admin Ceftriaxone Sodium (ROCEphine 1G INJ) 1 gm ONCE ONCE IVPB 03/09/25 10:30 03/09/25 10:32 DC 03/09/25 10:41 Ketorolac Tromethamine (toRADol) 30 mg ONCE ONCE IVP 03/09/25 09:30 03/09/25 09:31 DC 03/09/25 10:00 Sodium Chloride 500 ml @ 0 mls/hr ONCE ONCE IV 03/09/25 10:30 03/09/25 10:32 DC 03/09/25 10:41 Vital Signs Date Time Temp Pulse Resp B/P (MAP) Pulse Ox O2 Delivery O2 Flow Rate FiO2 03/09/25 11:19 99.9 80 17 104/64 99 Room Air* 0 21 03/09/25 09:39 100.8 99 18 126/81 95 Room Air* 0 21 03/09/25 08:58 100.2 100 18 105/67 98 Room Air 0 Medical Decision Making MDM Differential diagnosis-Renal colic, biliary colic Gastritis, esophagitis, gastroesophageal reflux disease, acute cholecystitis, peptic ulcer disease, gastroenteritis, colitis, constipation, pancreatitis, diverticulitis This is a 49-year-old female who presented to the emergency room with complaints of lower abdominal pain going on for 3 days. Mostly in the suprapubic area. She also reports frequency, dysuria. She also reported that she has had fever with chills cough body aches generalized weakness headaches. She denied any nausea vomitings diarrhea. Temperature 100.3 pulse 100 respirations 18 blood pressure 105/67 with a pulse oximetry of 98% on room air Chronic medical problems include diabetes mellitus, diverticulosis, h ypertension, hypercholesterolemia 10:30 a.m. labs reviewed CBC with a normal limits BNP 7 is significant for a sodium of 134 chloride 99. Urinalysis is significant for high amount of leuko esterase too numerous to count WBCs. Nasopharyngeal swabs for influenza COVID and strep were all negative. Gentle hydration and empiric Rocephin IV has been initiated. I updated the patient and her spouse on the lab results and UTI and plan to discharge her home on oral antibiotics. Rationale: Tests considered and ordered secondary to shared decision making include: Labs, urinalysis Previous outside records reviewed: Old ER visits. Risk of complication and/or morbidity or mortality of patient management: None Medications-Per medication reconciliation Need for hospitalization: Patient does not meet criteria for hospitalization. Need for emergency major/minor surgery: No There are no social concerns with this patient. Prescription drug management Prescriptions will include symptomatic care Patient's prior external medical records from other ER visits were reviewed by me as indicated. Prior testing and results from previous visits were reviewed. Prior tests were taken into account with medical decision making and resource utilization, independent historian/historians were used to obtain complete medical history. I independently interpreted the test that were performed, results were reviewed by me and considered findings on radiology if ordered. Medical management and examination interpretation discussions were had by me with other qualified healthcare professionals as indicated for the patient's care. DX & DISP Disposition: Discharge Departure Impression: Primary Impression: Acute cystitis Additional Impressions: Suprapubic abdominal pain, Dehydration Condition: Stable Scripts Ketorolac Tromethamine (Toradol) 10 Mg Tab 10 MG PO QID for pain for 5 Days, #20 TAB 0 Refills Prov: AMELIA CASTANEDA MD 03/09/25 Nitrofurantoin Monohyd/M-Cryst (Macrobid 100 mg Capsule) 100 Mg Capsule 1 CAP PO BID for 7 Days, #14 CAP 0 Refills Prov: AMELIA CASTANEDA MD 03/09/25 Additional Instructions: Patient and the caregiver have been informed of all the diagnostic tests and the imaging conducted during the today's visit to the emergency room and has verbalized understanding of the results I have personally reviewed and interpreted all diagnostic exams performed here in the ER today as well as the vital signs documented by the nursing staff. The patient is now being discharged to home and should follow up with the primary care physician or the specialist as directed by the ER staff. 1 schedule a follow-up appointment; call your primary care physician's office on the next business day to set up a follow-up appointment. 2. Monitor symptoms; if your symptoms worsen return to the emergency room immediately. 3. Return to school/work; you may return to work or school in 2 days or as directed by your primary care physician. 4. Manage pain and fever; take [id number] Tylenol or Advil for pain or fever if there are no contraindications follow the recommended dosage instructions. 5. Stay well hydrated; drink plenty of oral fluids to stay hydrated. 6. Take prescribed medications; take any medications prescribed in the emergency room as directed bring them with you to your primary care physician visit for possible adjustments. 7. Complete medication course; finish the entire course of medication as prescribed even if you start feeling better. Do not have any leftover medication unless instructed otherwise. 8. Follow up on culture results; if a urine culture and wound culture was ordered in the emergency room please follow-up with your primary care physician within 2-3 days to review the culture and sensitivity report for appropriate antibiotic therapy adjustments. 9. Resume home medications; you may resume taking your home medications unless instructed otherwise. Referrals: YESY HILL MD (PCP) AMELIA CASTANEDA MD Mar 09, 2025 09:27
[2025-03-09 09:50] LABS: GLUCOSE, URINE (UA) NEGATIVE (NEGATIVE); LEUKOCYTE ESTERASE ,URINE 500 Leu/uL (NEGATIVE); NITRATE,URINE NEGATIVE (NEGATIVE); OCCULT BLOOD,URINE MODERATE (NEGATIVE)
[2025-03-09 09:51] LABS: ADD UA MICROSCOPIC YES; APPEARANCE,URINE HAZY (CLEAR)
[2025-03-09 09:53] LABS: SQUAMOUS EPITHELIAL CELL,UR MANY /HPF (0-2)
[2025-03-09 10:01] LABS: RAPID GROUP A STREP negative (NEGATIVE)
[2025-03-09 10:10] LABS: INFLUENZA TYPE A Negative For Type A (NEGATIVE); INFLUENZA TYPE B Negative For Type B (NEGATIVE)
[2025-03-09 10:11] LABS: COVID19 (SARS ANTIGEN RAPID) PRESUMPTIVE NEGATIVE (NEGATIVE)
[2025-03-09 10:20] LABS: CREATININE 0.6 mg/dL (0.5-1.0); GLOMERULAR FILTR. RATE CALC 109.0 mL/min (>90); GLUCOSE,RANDOM 137.0 mg/dL (70-105); SODIUM SERUM 134.0 mmol/L (136-145); UREA NITROGEN, BLOOD 7.0 mg/dL (7-18)
[2025-03-09] MEDS: 0.9% NACL 500ML IV.SOLN 500 ML IV ONE (10:41)
[2025-03-09 11:19] VITALS: BP 104/64; PULSE 80; RESP 17; TEMP 99.9; O2SAT 99
[2025-03-09] MEDS ORDERED: NITR100C4 PO (11:25)
[2025-03-09] MEDS ORDERED: KETO10 PO (11:25)
--- NOTE | 2025-03-09 11:43 | NUR ---
PT STABLE NO DISTRESS VITALS WNL NO C/O PAIN, PT GIVEN INSTRUCTION FOR HOME. PT IV REMOVED CATHETER INTACT, PT DRIVEN HOME BY SPOUSE.
== END 2025-03-09 11:59 | disposition home or self-care (01) ==
LOC: EDH 08:50
DX: N30.00 Acute cystitis without hematuria (principal); E86.0 Dehydration; R10.30 Lower abdominal pain, unspecified; E11.9 Type 2 diabetes mellitus without complications; E78.00 Pure hypercholesterolemia, unspecified; I10 Essential (primary) hypertension; Z79.899 Other long term (current) drug therapy; Z79.84 Long term (current) use of oral hypoglycemic drugs; Z79.82 Long term (current) use of aspirin; Z90.49 Acquired absence of other specified parts of digestive tract; Z98.890 Other specified postprocedural states; Z20.822 Contact with and (suspected) exposure to COVID-19
CPT/HCPCS: 36415; 80048; 81001; 83690; 87086; 87186; 87426; 87804; 87880; 96374; 96375; 99284; J0696; J1885; J7040